=== PATIENT | female | born 1965 | race Caucasian/White ===

== ENCOUNTER 2016-06-02 13:11 | Inpatient (IN) | payer MEDICARE, MEDICAID ==
[~2016-06-02] VITALS: Ht 167.6 cm; Wt 63.1 kg
[~2016-06-02 13:11] MED LIST: BENZ1TAB10 PO; DIVA500T35 PO; PALI234D IM; PANT40TA25 PO; RALT400T PO; RISP3 PO
[2016-06-02] MEDS ORDERED: HALOPERIDOL 5 MG TABLET PO PRN (13:15)
[2016-06-02] MEDS ORDERED: INFLUENZA VIRUS VACCINE QVS 2016-17 (3YR+)/PF 60 MCG/0.5 ML SYRINGE IM ONE (14:15)
[2016-06-02] MEDS ORDERED: PNEUMOCOCCAL VACCINE POLYVALENT 0.5 ML VIAL [PPSV23] IM ONE (14:15)
[2016-06-02 16:05] VITALS: BP 106/60
[2016-06-02] MEDS: RisperiDONE 3 MG TABLET PO SCH (16:40)
[2016-06-02] MEDS: BENZTROPINE MESYLATE 1 MG TABLET PO SCH (16:40)
[2016-06-02] MEDS: DIVALPROEX SODIUM 500 MG DR TABLET PO SCH (16:41)
[2016-06-02] MEDS ORDERED: RisperiDONE 3 MG TABLET PO SCH (17:00)
[2016-06-02] MEDS ORDERED: BENZTROPINE MESYLATE 1 MG TABLET PO SCH (17:00)
[2016-06-02] MEDS ORDERED: DIVALPROEX SODIUM 500 MG DR TABLET PO SCH (17:00)
[2016-06-03] MEDS: RisperiDONE 3 MG TABLET PO SCH ×2 (08:57→16:32)
[2016-06-03] MEDS: DIVALPROEX SODIUM 500 MG DR TABLET PO SCH ×2 (08:57→16:32)
[2016-06-03] MEDS: BENZTROPINE MESYLATE 1 MG TABLET PO SCH ×2 (08:57→16:32)
[2016-06-03 16:08] VITALS: BP 109/70
[2016-06-03] MEDS: RALTEGRAVIR 400 MG TABLET PO SCH (16:32)
[2016-06-04 08:04] VITALS: BP 101/60
[2016-06-04] MEDS: RisperiDONE 3 MG TABLET PO SCH ×2 (08:12→16:36)
[2016-06-04] MEDS: DIVALPROEX SODIUM 500 MG DR TABLET PO SCH ×2 (08:12→16:36)
[2016-06-04] MEDS: BENZTROPINE MESYLATE 1 MG TABLET PO SCH ×2 (08:12→16:36)
[2016-06-04] MEDS: RALTEGRAVIR 400 MG TABLET PO SCH ×2 (08:12→16:36)
[2016-06-04 16:00] VITALS: BP 118/68
[2016-06-05] MEDS: RALTEGRAVIR 400 MG TABLET PO SCH ×2 (08:21→16:29)
[2016-06-05] MEDS: RisperiDONE 3 MG TABLET PO SCH ×2 (08:21→16:29)
[2016-06-05] MEDS: BENZTROPINE MESYLATE 1 MG TABLET PO SCH ×2 (08:21→16:29)
[2016-06-05] MEDS: DIVALPROEX SODIUM 500 MG DR TABLET PO SCH ×2 (08:21→16:29)
[2016-06-05 08:31] VITALS: BP 108/67
[2016-06-05 16:04] VITALS: BP 104/61
[2016-06-06 08:14] VITALS: BP 104/61
[2016-06-06] MEDS: BENZTROPINE MESYLATE 1 MG TABLET PO SCH ×2 (08:30→16:35)
[2016-06-06] MEDS: RisperiDONE 3 MG TABLET PO SCH ×2 (08:30→16:35)
[2016-06-06] MEDS: RALTEGRAVIR 400 MG TABLET PO SCH ×2 (08:30→16:36)
[2016-06-06] MEDS: DIVALPROEX SODIUM 500 MG DR TABLET PO SCH ×2 (08:30→16:35)
[2016-06-06 16:03] VITALS: BP 105/60
[2016-06-07 08:23] VITALS: BP 92/49
[2016-06-07] MEDS: RALTEGRAVIR 400 MG TABLET PO SCH ×2 (08:27→16:59)
[2016-06-07] MEDS: BENZTROPINE MESYLATE 1 MG TABLET PO SCH ×2 (08:27→16:59)
[2016-06-07] MEDS: RisperiDONE 3 MG TABLET PO SCH ×2 (08:27→16:59)
[2016-06-07] MEDS: DIVALPROEX SODIUM 500 MG DR TABLET PO SCH ×2 (08:27→16:59)
[2016-06-07 10:45] VITALS: BP 105/75
[2016-06-07 16:07] VITALS: BP 110/62
[2016-06-08 08:01] VITALS: BP 97/52
[2016-06-08] MEDS: RisperiDONE 3 MG TABLET PO SCH ×2 (08:12→16:33)
[2016-06-08] MEDS: BENZTROPINE MESYLATE 1 MG TABLET PO SCH ×2 (08:12→16:33)
[2016-06-08] MEDS: RALTEGRAVIR 400 MG TABLET PO SCH ×2 (08:12→16:33)
[2016-06-08] MEDS: DIVALPROEX SODIUM 500 MG DR TABLET PO SCH ×2 (08:12→16:33)
[2016-06-08 16:09] VITALS: BP 102/60
[2016-06-09 00:08] VITALS: BP 104/68
[2016-06-09 08:11] VITALS: BP 100/58
[2016-06-09] MEDS: BENZTROPINE MESYLATE 1 MG TABLET PO SCH ×2 (08:51→16:45)
[2016-06-09] MEDS: DIVALPROEX SODIUM 500 MG DR TABLET PO SCH ×2 (08:51→16:45)
[2016-06-09] MEDS: RALTEGRAVIR 400 MG TABLET PO SCH ×2 (08:51→16:45)
[2016-06-09] MEDS: RisperiDONE 3 MG TABLET PO SCH ×2 (08:51→16:45)
[2016-06-09 16:07] VITALS: BP 105/61
[2016-06-10 07:13] VITALS: BP 123/53
[2016-06-10 08:08] VITALS: BP 107/56
[2016-06-10] MEDS: BENZTROPINE MESYLATE 1 MG TABLET PO SCH ×2 (08:46→16:46)
[2016-06-10] MEDS: RALTEGRAVIR 400 MG TABLET PO SCH ×2 (08:46→16:46)
[2016-06-10] MEDS: DIVALPROEX SODIUM 500 MG DR TABLET PO SCH ×2 (08:46→16:46)
[2016-06-10] MEDS: RisperiDONE 3 MG TABLET PO SCH ×2 (08:46→16:46)
[2016-06-10 16:24] VITALS: BP 102/62
[2016-06-10] MEDS: ZOLPIDEM TARTRATE 10 MG TABLET PO PRN (22:17)
[2016-06-11 06:57] VITALS: BP 100/60
[2016-06-11] MEDS: BENZTROPINE MESYLATE 1 MG TABLET PO SCH ×2 (08:38→16:47)
[2016-06-11] MEDS: RALTEGRAVIR 400 MG TABLET PO SCH ×2 (08:39→16:46)
[2016-06-11] MEDS: RisperiDONE 3 MG TABLET PO SCH ×2 (08:39→16:46)
[2016-06-11] MEDS: DIVALPROEX SODIUM 500 MG DR TABLET PO SCH ×2 (08:39→16:47)
[2016-06-11 11:48] VITALS: BP 106/60
[2016-06-11 16:09] VITALS: BP 103/62
[2016-06-11] MEDS: LORazepam 2 MG TABLET PO PRN (19:43)
[2016-06-12 06:27] VITALS: BP 95/59
[2016-06-12 08:13] VITALS: BP 100/60
[2016-06-12] MEDS: RALTEGRAVIR 400 MG TABLET PO SCH ×2 (08:46→16:41)
[2016-06-12] MEDS: DIVALPROEX SODIUM 500 MG DR TABLET PO SCH ×2 (08:47→16:41)
[2016-06-12] MEDS: RisperiDONE 3 MG TABLET PO SCH ×2 (08:47→16:41)
[2016-06-12] MEDS: BENZTROPINE MESYLATE 1 MG TABLET PO SCH ×2 (08:47→16:41)
[2016-06-12 16:10] VITALS: BP 131/60
[2016-06-12] MEDS: LORazepam 2 MG TABLET PO PRN (19:07)
[2016-06-13 06:36] VITALS: BP 101/57
[2016-06-13] MEDS: DIVALPROEX SODIUM 500 MG DR TABLET PO SCH ×2 (09:04→16:59)
[2016-06-13] MEDS: RisperiDONE 3 MG TABLET PO SCH ×2 (09:04→16:59)
[2016-06-13] MEDS: RALTEGRAVIR 400 MG TABLET PO SCH ×2 (09:04→16:59)
[2016-06-13] MEDS: BENZTROPINE MESYLATE 1 MG TABLET PO SCH ×2 (09:04→16:59)
[2016-06-13 16:17] VITALS: BP 114/67
[2016-06-13] MEDS: LORazepam 2 MG TABLET PO PRN (20:44)
[2016-06-14 00:39] VITALS: BP_SYST 116
[2016-06-14] MEDS: DIVALPROEX SODIUM 500 MG DR TABLET PO SCH ×2 (09:07→16:41)
[2016-06-14] MEDS: BENZTROPINE MESYLATE 1 MG TABLET PO SCH ×2 (09:07→16:41)
[2016-06-14] MEDS: RALTEGRAVIR 400 MG TABLET PO SCH ×2 (09:07→16:41)
[2016-06-14] MEDS: RisperiDONE 3 MG TABLET PO SCH ×2 (09:07→16:41)
[2016-06-14 16:11] VITALS: BP 104/62
[2016-06-14] MEDS: LORazepam 2 MG TABLET PO PRN (19:44)
[2016-06-15 00:37] VITALS: BP 106/60
[2016-06-15 08:49] VITALS: BP 101/60
[2016-06-15] MEDS: RisperiDONE 3 MG TABLET PO SCH ×2 (08:55→16:35)
[2016-06-15] MEDS: DIVALPROEX SODIUM 500 MG DR TABLET PO SCH ×2 (08:55→16:37)
[2016-06-15] MEDS: RALTEGRAVIR 400 MG TABLET PO SCH ×2 (08:55→16:35)
[2016-06-15] MEDS: BENZTROPINE MESYLATE 1 MG TABLET PO SCH ×2 (08:55→16:35)
[2016-06-15 16:09] VITALS: BP 124/68
[2016-06-16 00:34] VITALS: BP 109/59
[2016-06-16 06:05] VITALS: BP 109/63
[2016-06-16] MEDS: DIVALPROEX SODIUM 500 MG DR TABLET PO SCH ×2 (09:04→16:26)
[2016-06-16] MEDS: RisperiDONE 3 MG TABLET PO SCH ×2 (09:04→16:27)
[2016-06-16] MEDS: RALTEGRAVIR 400 MG TABLET PO SCH ×2 (09:04→16:26)
[2016-06-16] MEDS: BENZTROPINE MESYLATE 1 MG TABLET PO SCH ×2 (09:04→16:27)
[2016-06-16 10:07] VITALS: BP 107/62
[2016-06-16 16:16] VITALS: BP 102/68
[2016-06-16] MEDS: LORazepam 2 MG TABLET PO PRN (19:09)
[2016-06-17] VITALS: BP 128/74
[2016-06-17] MEDS: RisperiDONE 3 MG TABLET PO SCH ×2 (09:02→16:33)
[2016-06-17] MEDS: BENZTROPINE MESYLATE 1 MG TABLET PO SCH ×2 (09:02→16:23)
[2016-06-17] MEDS: DIVALPROEX SODIUM 500 MG DR TABLET PO SCH ×2 (09:03→16:23)
[2016-06-17] MEDS: RALTEGRAVIR 400 MG TABLET PO SCH ×2 (09:03→16:33)
[2016-06-17 16:10] VITALS: BP 101/64
[2016-06-17] MEDS: ZOLPIDEM TARTRATE 10 MG TABLET PO PRN (20:44)
[2016-06-18 00:59] VITALS: BP 104/59
[2016-06-18] MEDS: DIVALPROEX SODIUM 500 MG DR TABLET PO SCH ×2 (08:39→16:39)
[2016-06-18] MEDS: RALTEGRAVIR 400 MG TABLET PO SCH ×2 (08:39→16:39)
[2016-06-18] MEDS: BENZTROPINE MESYLATE 1 MG TABLET PO SCH ×2 (08:39→16:39)
[2016-06-18] MEDS: RisperiDONE 3 MG TABLET PO SCH ×2 (08:39→16:39)
[2016-06-18 16:24] VITALS: BP 109/65
[2016-06-18] MEDS: LORazepam 2 MG TABLET PO PRN (19:59)
[2016-06-19] MEDS: RisperiDONE 3 MG TABLET PO SCH ×2 (08:24→16:44)
[2016-06-19] MEDS: RALTEGRAVIR 400 MG TABLET PO SCH ×2 (08:24→16:44)
[2016-06-19] MEDS: BENZTROPINE MESYLATE 1 MG TABLET PO SCH ×2 (08:25→16:44)
[2016-06-19] MEDS: DIVALPROEX SODIUM 500 MG DR TABLET PO SCH ×2 (08:25→16:44)
[2016-06-19 16:43] VITALS: BP 101/58
[2016-06-19] MEDS: LORazepam 2 MG TABLET PO PRN (19:45)
[2016-06-20 06:30] VITALS: BP 100/58
[2016-06-20 08:21] VITALS: BP 98/54
[2016-06-20] MEDS: RALTEGRAVIR 400 MG TABLET PO SCH ×2 (09:09→16:36)
[2016-06-20] MEDS: BENZTROPINE MESYLATE 1 MG TABLET PO SCH ×2 (09:09→16:36)
[2016-06-20] MEDS: DIVALPROEX SODIUM 500 MG DR TABLET PO SCH ×2 (09:09→16:36)
[2016-06-20] MEDS: RisperiDONE 3 MG TABLET PO SCH ×2 (09:09→16:36)
[2016-06-20 16:14] VITALS: BP 105/62
[2016-06-20] MEDS: LORazepam 2 MG TABLET PO PRN (19:54)
[2016-06-21 00:11] VITALS: BP 112/66
[2016-06-21 08:34] VITALS: BP 99/65
[2016-06-21] MEDS: BENZTROPINE MESYLATE 1 MG TABLET PO SCH ×2 (09:30→16:38)
[2016-06-21] MEDS: RALTEGRAVIR 400 MG TABLET PO SCH ×2 (09:30→16:38)
[2016-06-21] MEDS: DIVALPROEX SODIUM 500 MG DR TABLET PO SCH ×2 (09:30→16:38)
[2016-06-21] MEDS: RisperiDONE 3 MG TABLET PO SCH ×2 (09:30→16:38)
[2016-06-21 16:08] VITALS: BP 104/60
[2016-06-21] MEDS: LORazepam 2 MG TABLET PO PRN (20:10)
[2016-06-22 02:56] VITALS: BP 104/64
[2016-06-22 08:30] VITALS: BP 107/69
[2016-06-22] MEDS: RALTEGRAVIR 400 MG TABLET PO SCH ×2 (08:51→16:33)
[2016-06-22] MEDS: DIVALPROEX SODIUM 500 MG DR TABLET PO SCH ×2 (08:51→16:33)
[2016-06-22] MEDS: BENZTROPINE MESYLATE 1 MG TABLET PO SCH ×2 (08:51→16:33)
[2016-06-22] MEDS: RisperiDONE 3 MG TABLET PO SCH ×2 (08:52→16:33)
[2016-06-22 16:10] VITALS: BP 105/67
[2016-06-22] MEDS: LORazepam 2 MG TABLET PO PRN (20:24)
[2016-06-23 01:51] VITALS: BP 108/74
[2016-06-23 08:13] VITALS: BP 102/60
[2016-06-23] MEDS: RisperiDONE 3 MG TABLET PO SCH ×2 (09:50→16:39)
[2016-06-23] MEDS: RALTEGRAVIR 400 MG TABLET PO SCH ×2 (09:50→16:39)
[2016-06-23] MEDS: DIVALPROEX SODIUM 500 MG DR TABLET PO SCH ×2 (09:50→16:39)
[2016-06-23] MEDS: BENZTROPINE MESYLATE 1 MG TABLET PO SCH ×2 (09:50→16:39)
[2016-06-23 16:15] VITALS: BP 103/61
[2016-06-23] MEDS: LORazepam 2 MG TABLET PO PRN (21:15)
[2016-06-24] MEDS: RisperiDONE 3 MG TABLET PO SCH ×2 (08:59→16:40)
[2016-06-24] MEDS: DIVALPROEX SODIUM 500 MG DR TABLET PO SCH ×2 (08:59→16:40)
[2016-06-24] MEDS: RALTEGRAVIR 400 MG TABLET PO SCH ×2 (08:59→16:40)
[2016-06-24] MEDS: BENZTROPINE MESYLATE 1 MG TABLET PO SCH ×2 (08:59→16:40)
[2016-06-24 09:57] VITALS: BP 101/67
[2016-06-24 16:39] VITALS: BP 101/61
[2016-06-24] MEDS: LORazepam 2 MG TABLET PO PRN (21:51)
[2016-06-25 08:11] VITALS: BP 102/60
[2016-06-25] MEDS: BENZTROPINE MESYLATE 1 MG TABLET PO SCH ×2 (09:06→16:50)
[2016-06-25] MEDS: DIVALPROEX SODIUM 500 MG DR TABLET PO SCH ×2 (09:06→16:50)
[2016-06-25] MEDS: RisperiDONE 3 MG TABLET PO SCH ×2 (09:06→16:50)
[2016-06-25] MEDS: RALTEGRAVIR 400 MG TABLET PO SCH ×2 (09:06→16:50)
[2016-06-25 16:15] VITALS: BP 104/64
[2016-06-25] MEDS: LORazepam 2 MG TABLET PO PRN (19:40)
[2016-06-26 06:41] VITALS: BP 108/62
[2016-06-26 08:30] VITALS: BP 118/64
[2016-06-26] MEDS: BENZTROPINE MESYLATE 1 MG TABLET PO SCH ×2 (09:40→16:27)
[2016-06-26] MEDS: DIVALPROEX SODIUM 500 MG DR TABLET PO SCH ×2 (09:41→16:27)
[2016-06-26] MEDS: RALTEGRAVIR 400 MG TABLET PO SCH ×2 (09:41→16:27)
[2016-06-26] MEDS: RisperiDONE 3 MG TABLET PO SCH ×2 (09:41→16:27)
[2016-06-26 16:16] VITALS: BP 102/68
[2016-06-26] MEDS: LORazepam 2 MG TABLET PO PRN (20:49)
[2016-06-27 06:39] VITALS: BP 100/60
[2016-06-27] MEDS: BENZTROPINE MESYLATE 1 MG TABLET PO SCH ×2 (09:05→16:40)
[2016-06-27] MEDS: DIVALPROEX SODIUM 500 MG DR TABLET PO SCH ×2 (09:05→16:40)
[2016-06-27] MEDS: RisperiDONE 3 MG TABLET PO SCH ×2 (09:05→16:40)
[2016-06-27] MEDS: RALTEGRAVIR 400 MG TABLET PO SCH ×2 (09:05→16:40)
[2016-06-27 13:45] VITALS: BP 104/62
[2016-06-27 16:37] VITALS: BP 104/65
[2016-06-28 01:26] VITALS: BP 112/67
[2016-06-28] MEDS: RALTEGRAVIR 400 MG TABLET PO SCH ×2 (09:10→16:40)
[2016-06-28] MEDS: RisperiDONE 3 MG TABLET PO SCH ×2 (09:10→16:40)
[2016-06-28] MEDS: BENZTROPINE MESYLATE 1 MG TABLET PO SCH ×2 (09:10→16:40)
[2016-06-28] MEDS: DIVALPROEX SODIUM 500 MG DR TABLET PO SCH ×2 (09:10→16:40)
[2016-06-28 10:00] VITALS: BP 101/60
[2016-06-28 16:09] VITALS: BP 107/67
[2016-06-28] MEDS: LORazepam 2 MG TABLET PO PRN (21:08)
[2016-06-29 00:43] VITALS: BP 108/60
[2016-06-29 08:45] VITALS: BP 105/60
[2016-06-29] MEDS: RALTEGRAVIR 400 MG TABLET PO SCH ×2 (09:07→16:20)
[2016-06-29] MEDS: RisperiDONE 3 MG TABLET PO SCH ×2 (09:07→16:20)
[2016-06-29] MEDS: DIVALPROEX SODIUM 500 MG DR TABLET PO SCH ×2 (09:07→16:20)
[2016-06-29] MEDS: BENZTROPINE MESYLATE 1 MG TABLET PO SCH ×2 (09:07→16:20)
[2016-06-29 16:11] VITALS: BP 108/64
[2016-06-29] MEDS: LORazepam 2 MG TABLET PO PRN (20:27)
[2016-06-30 00:11] VITALS: BP 108/67
[2016-06-30] MEDS: RALTEGRAVIR 400 MG TABLET PO SCH ×2 (09:07→16:43)
[2016-06-30] MEDS: RisperiDONE 3 MG TABLET PO SCH ×2 (09:07→16:43)
[2016-06-30] MEDS: BENZTROPINE MESYLATE 1 MG TABLET PO SCH ×2 (09:07→16:43)
[2016-06-30] MEDS: DIVALPROEX SODIUM 500 MG DR TABLET PO SCH ×2 (09:08→16:43)
[2016-06-30 09:50] LABS: BASOPHILS % (AUTO) 0.2 % (0.0-2.0); HEMATOCRIT 32.6 % (36-46); HEMOGLOBIN 10.7 g/dL (12.0-16.0); LYMPHOCYTES # (AUTO) 0.8 K/uL (1.0-4.8); LYMPHOCYTES % (AUTO) 19.1 % (22.0-44.0); MEAN CORPUSCULAR HEMOGLOBIN 29.4 pg (26.0-34.0); MEAN CORPUSCULAR HGB CONC 32.8 G/dL (31.0-37.0); MEAN CORPUSCULAR VOLUME 90 fL (80-100); MONOCYTES # (AUTO) 0.4 K/uL (0.1-1.0); MONOCYTES % (AUTO) 9.8 % (2.0-9.0); NEUTROPHILS # (AUTO) 2.8 K/uL (1.8-7.7); NEUTROPHILS % (AUTO) 66.9 % (40.0-70.0); PLATELET COUNT (AUTO) 115 K/uL (150-450); RED BLOOD CELL COUNT(AUTO) 3.63 MIL/uL (4.00-5.20); RED CELL DISTRIBUTION WIDTH 14.8 % (11.5-14.5); WHITE BLOOD COUNT (AUTO) 4.2 K/uL (4.5-11.0)
[2016-06-30 10:00] LABS: ALBUMIN 2.9 g/dL (3.4-5.0); BILIRUBIN,TOTAL 0.2 mg/dL (0.1-1.0); CALCIUM, TOTAL 9.3 mg/dL (8.8-10.5); CREATININE 1.87 mg/dL (0.60-1.30); POTASSIUM 4.3 mmol/L (3.5-5.1); TOTAL PROTEIN, SERUM 7.2 g/dL (6.4-8.2)
[2016-06-30 16:10] VITALS: BP 101/60
[2016-07-01 00:11] VITALS: BP 108/69
[2016-07-01 08:05] VITALS: BP 112/61
[2016-07-01] MEDS: RALTEGRAVIR 400 MG TABLET PO SCH (08:35)
[2016-07-01] MEDS: DIVALPROEX SODIUM 500 MG DR TABLET PO SCH (08:35)
[2016-07-01] MEDS: BENZTROPINE MESYLATE 1 MG TABLET PO SCH (08:35)
[2016-07-01] MEDS: RisperiDONE 3 MG TABLET PO SCH (08:35)
[2016-07-02] MEDS: DIVALPROEX SODIUM 500 MG DR TABLET PO SCH ×2 (09:00→17:00)
[2016-07-02] MEDS: RALTEGRAVIR 400 MG TABLET PO SCH ×2 (09:00→17:00)
[2016-07-02] MEDS: BENZTROPINE MESYLATE 1 MG TABLET PO SCH ×2 (09:00→17:00)
[2016-07-02] MEDS: RisperiDONE 3 MG TABLET PO SCH ×2 (09:00→17:00)
[2016-07-03 06:41] VITALS: BP 102/65
[2016-07-03] MEDS: RALTEGRAVIR 400 MG TABLET PO SCH ×2 (09:16→17:24)
[2016-07-03] MEDS: BENZTROPINE MESYLATE 1 MG TABLET PO SCH ×2 (09:16→17:24)
[2016-07-03] MEDS: DIVALPROEX SODIUM 500 MG DR TABLET PO SCH ×2 (09:17→17:24)
[2016-07-03] MEDS: RisperiDONE 3 MG TABLET PO SCH ×2 (09:17→17:24)
[2016-07-03 09:42] VITALS: BP 101/68
[2016-07-03] MEDS: LORazepam 2 MG TABLET PO PRN ×2 (11:59→21:23)
[2016-07-03 16:00] VITALS: BP 101/63
[2016-07-04 08:24] VITALS: BP 100/59
[2016-07-04] MEDS: DIVALPROEX SODIUM 500 MG DR TABLET PO SCH ×2 (09:04→16:35)
[2016-07-04] MEDS: BENZTROPINE MESYLATE 1 MG TABLET PO SCH ×2 (09:04→16:35)
[2016-07-04] MEDS: RALTEGRAVIR 400 MG TABLET PO SCH ×2 (09:04→16:35)
[2016-07-04] MEDS: RisperiDONE 3 MG TABLET PO SCH ×2 (09:04→16:35)
[2016-07-04 16:11] VITALS: BP 106/61
[2016-07-04] MEDS: LORazepam 2 MG TABLET PO PRN (20:23)
[2016-07-05 06:02] VITALS: BP 105/60
[2016-07-05 08:22] VITALS: BP 108/73
[2016-07-05] MEDS: DIVALPROEX SODIUM 500 MG DR TABLET PO SCH ×2 (09:05→16:46)
[2016-07-05] MEDS: RALTEGRAVIR 400 MG TABLET PO SCH ×2 (09:05→16:46)
[2016-07-05] MEDS: BENZTROPINE MESYLATE 1 MG TABLET PO SCH ×2 (09:05→16:46)
[2016-07-05] MEDS: RisperiDONE 3 MG TABLET PO SCH ×2 (09:05→16:46)
[2016-07-05 18:41] VITALS: BP 101/66
[2016-07-05] MEDS: LORazepam 2 MG TABLET PO PRN (19:16)
[2016-07-06 00:44] VITALS: BP 112/74
[2016-07-06] MEDS: RisperiDONE 3 MG TABLET PO SCH ×2 (09:10→16:56)
[2016-07-06] MEDS: BENZTROPINE MESYLATE 1 MG TABLET PO SCH ×2 (09:10→16:56)
[2016-07-06] MEDS: DIVALPROEX SODIUM 500 MG DR TABLET PO SCH ×2 (09:10→16:56)
[2016-07-06] MEDS: RALTEGRAVIR 400 MG TABLET PO SCH ×2 (09:10→16:56)
[2016-07-06 09:14] VITALS: BP 105/67
[2016-07-06 16:40] VITALS: BP 110/69
[2016-07-06] MEDS: LORazepam 2 MG TABLET PO PRN (21:14)
[2016-07-07 06:33] VITALS: BP 117/69
[2016-07-07 08:42] VITALS: BP 100/75
[2016-07-07] MEDS: DIVALPROEX SODIUM 500 MG DR TABLET PO SCH ×2 (08:45→16:08)
[2016-07-07] MEDS: BENZTROPINE MESYLATE 1 MG TABLET PO SCH ×2 (08:46→16:08)
[2016-07-07] MEDS: RALTEGRAVIR 400 MG TABLET PO SCH ×2 (08:46→16:08)
[2016-07-07] MEDS: RisperiDONE 3 MG TABLET PO SCH ×2 (08:46→16:08)
[2016-07-07 16:08] VITALS: BP 102/65
[2016-07-07] MEDS: LORazepam 2 MG TABLET PO PRN (21:11)
[2016-07-08 06:47] VITALS: BP 101/65
[2016-07-08] MEDS: DIVALPROEX SODIUM 500 MG DR TABLET PO SCH ×2 (08:53→16:25)
[2016-07-08] MEDS: RALTEGRAVIR 400 MG TABLET PO SCH ×2 (08:53→16:25)
[2016-07-08] MEDS: BENZTROPINE MESYLATE 1 MG TABLET PO SCH ×2 (08:53→16:25)
[2016-07-08] MEDS: RisperiDONE 3 MG TABLET PO SCH ×2 (08:53→16:25)
[2016-07-08 09:09] VITALS: BP 106/61
[2016-07-08 17:24] VITALS: BP 100/61
[2016-07-08] MEDS: LORazepam 2 MG TABLET PO PRN (21:35)
[2016-07-09 06:23] VITALS: BP 102/65
[2016-07-09 08:09] VITALS: BP 107/74
[2016-07-09] MEDS: BENZTROPINE MESYLATE 1 MG TABLET PO SCH ×2 (09:44→16:15)
[2016-07-09] MEDS: RisperiDONE 3 MG TABLET PO SCH ×2 (09:45→16:15)
[2016-07-09] MEDS: DIVALPROEX SODIUM 500 MG DR TABLET PO SCH ×2 (09:45→16:15)
[2016-07-09] MEDS: RALTEGRAVIR 400 MG TABLET PO SCH ×2 (09:45→16:15)
[2016-07-09 16:14] VITALS: BP 106/66
[2016-07-09] MEDS: LORazepam 2 MG TABLET PO PRN (20:03)
[2016-07-10 05:10] VITALS: BP 138/70
[2016-07-10 06:34] VITALS: BP 141/70
[2016-07-10 09:24] VITALS: BP 106/61
[2016-07-10] MEDS: DIVALPROEX SODIUM 500 MG DR TABLET PO SCH ×2 (09:43→16:19)
[2016-07-10] MEDS: RisperiDONE 3 MG TABLET PO SCH ×2 (09:43→16:19)
[2016-07-10] MEDS: RALTEGRAVIR 400 MG TABLET PO SCH ×2 (09:43→16:19)
[2016-07-10] MEDS: BENZTROPINE MESYLATE 1 MG TABLET PO SCH ×2 (09:43→16:19)
[2016-07-10 16:20] VITALS: BP 105/63
[2016-07-11 00:01] VITALS: BP 112/78
[2016-07-11] MEDS: LORazepam 2 MG TABLET PO PRN ×2 (00:02→20:43)
[2016-07-11 09:18] VITALS: BP 100/59
[2016-07-11] MEDS: RisperiDONE 3 MG TABLET PO SCH ×2 (09:41→17:32)
[2016-07-11] MEDS: DIVALPROEX SODIUM 500 MG DR TABLET PO SCH ×2 (09:41→17:32)
[2016-07-11] MEDS: BENZTROPINE MESYLATE 1 MG TABLET PO SCH ×2 (09:41→17:32)
[2016-07-11] MEDS: RALTEGRAVIR 400 MG TABLET PO SCH ×2 (09:41→17:33)
[2016-07-11 16:44] VITALS: BP 105/67
[2016-07-11] MEDS: ZOLPIDEM TARTRATE 10 MG TABLET PO PRN (20:43)
[2016-07-12 00:01] VITALS: BP 108/68
[2016-07-12 08:26] VITALS: BP 100/61
[2016-07-12] MEDS: BENZTROPINE MESYLATE 1 MG TABLET PO SCH ×2 (09:22→16:39)
[2016-07-12] MEDS: RisperiDONE 3 MG TABLET PO SCH ×2 (09:22→16:39)
[2016-07-12] MEDS: DIVALPROEX SODIUM 500 MG DR TABLET PO SCH ×2 (09:22→16:39)
[2016-07-12] MEDS: RALTEGRAVIR 400 MG TABLET PO SCH ×2 (09:22→16:38)
[2016-07-12 16:08] VITALS: BP 128/74
[2016-07-12] MEDS: LORazepam 2 MG TABLET PO PRN (19:30)
[2016-07-13 04:08] VITALS: BP 103/63
[2016-07-13 08:58] VITALS: BP 106/60
[2016-07-13] MEDS: RisperiDONE 3 MG TABLET PO SCH ×2 (09:16→16:35)
[2016-07-13] MEDS: DIVALPROEX SODIUM 500 MG DR TABLET PO SCH ×2 (09:16→16:35)
[2016-07-13] MEDS: BENZTROPINE MESYLATE 1 MG TABLET PO SCH ×2 (09:16→16:35)
[2016-07-13] MEDS: RALTEGRAVIR 400 MG TABLET PO SCH ×2 (09:16→16:35)
[2016-07-13 16:12] VITALS: BP 107/69
[2016-07-13] MEDS: LORazepam 2 MG TABLET PO PRN (20:45)
[2016-07-14 05:13] VITALS: BP 110/64
[2016-07-14] MEDS: DIVALPROEX SODIUM 500 MG DR TABLET PO SCH ×2 (10:00→16:49)
[2016-07-14] MEDS: BENZTROPINE MESYLATE 1 MG TABLET PO SCH ×2 (10:00→16:49)
[2016-07-14] MEDS: RisperiDONE 3 MG TABLET PO SCH ×2 (10:00→16:49)
[2016-07-14] MEDS: RALTEGRAVIR 400 MG TABLET PO SCH ×2 (10:00→16:49)
[2016-07-14 11:51] VITALS: BP 105/71
[2016-07-14 16:20] VITALS: BP 102/62
[2016-07-14] MEDS: LORazepam 2 MG TABLET PO PRN (21:14)
[2016-07-15 04:00] VITALS: BP 103/62
[2016-07-15] MEDS: BENZTROPINE MESYLATE 1 MG TABLET PO SCH ×2 (08:44→16:20)
[2016-07-15] MEDS: RisperiDONE 3 MG TABLET PO SCH ×2 (08:44→16:20)
[2016-07-15] MEDS: DIVALPROEX SODIUM 500 MG DR TABLET PO SCH ×2 (08:44→16:20)
[2016-07-15] MEDS: RALTEGRAVIR 400 MG TABLET PO SCH ×2 (08:44→16:20)
[2016-07-15 09:21] VITALS: BP 107/63
[2016-07-15 16:07] VITALS: BP 103/60
[2016-07-15] MEDS: LORazepam 2 MG TABLET PO PRN (19:38)
[2016-07-16] MEDS: RisperiDONE 3 MG TABLET PO SCH ×2 (08:44→16:16)
[2016-07-16] MEDS: BENZTROPINE MESYLATE 1 MG TABLET PO SCH ×2 (08:44→16:16)
[2016-07-16] MEDS: DIVALPROEX SODIUM 500 MG DR TABLET PO SCH ×2 (08:44→16:16)
[2016-07-16] MEDS: RALTEGRAVIR 400 MG TABLET PO SCH ×2 (08:44→16:17)
[2016-07-16 09:26] VITALS: BP 101/60
[2016-07-16 16:17] VITALS: BP 114/68
[2016-07-17 01:10] VITALS: BP 115/74
[2016-07-17 08:56] VITALS: BP 101/64
[2016-07-17] MEDS: RALTEGRAVIR 400 MG TABLET PO SCH ×2 (09:13→16:16)
[2016-07-17] MEDS: BENZTROPINE MESYLATE 1 MG TABLET PO SCH ×2 (09:13→16:16)
[2016-07-17] MEDS: DIVALPROEX SODIUM 500 MG DR TABLET PO SCH ×2 (09:13→16:16)
[2016-07-17] MEDS: RisperiDONE 3 MG TABLET PO SCH ×2 (09:13→16:16)
[2016-07-17 16:00] VITALS: BP 104/62
[2016-07-18 00:39] VITALS: BP 104/65
[2016-07-18] MEDS: DIVALPROEX SODIUM 500 MG DR TABLET PO SCH ×2 (08:51→16:36)
[2016-07-18] MEDS: BENZTROPINE MESYLATE 1 MG TABLET PO SCH ×2 (08:51→16:35)
[2016-07-18] MEDS: RisperiDONE 3 MG TABLET PO SCH ×2 (08:51→16:36)
[2016-07-18] MEDS: RALTEGRAVIR 400 MG TABLET PO SCH ×2 (08:51→16:35)
[2016-07-18 09:05] VITALS: BP 100/60
[2016-07-18 16:00] VITALS: BP 102/63
[2016-07-18] MEDS: LORazepam 2 MG TABLET PO PRN (19:28)
[2016-07-19 00:38] VITALS: BP 110/62
[2016-07-19 08:17] VITALS: BP 111/60
[2016-07-19] MEDS: RisperiDONE 3 MG TABLET PO SCH ×2 (11:08→16:45)
[2016-07-19] MEDS: RALTEGRAVIR 400 MG TABLET PO SCH ×2 (11:09→16:45)
[2016-07-19] MEDS: DIVALPROEX SODIUM 500 MG DR TABLET PO SCH ×2 (11:09→16:45)
[2016-07-19] MEDS: BENZTROPINE MESYLATE 1 MG TABLET PO SCH ×2 (11:09→16:45)
[2016-07-19 16:04] VITALS: BP 103/61
[2016-07-20 00:01] VITALS: BP 110/65
[2016-07-20] MEDS: LORazepam 2 MG TABLET PO PRN ×2 (00:02→22:13)
[2016-07-20 09:01] VITALS: BP 84/48
[2016-07-20 09:10] VITALS: BP 98/65
[2016-07-20] MEDS: RisperiDONE 3 MG TABLET PO SCH ×2 (09:18→16:23)
[2016-07-20] MEDS: RALTEGRAVIR 400 MG TABLET PO SCH ×2 (09:18→16:23)
[2016-07-20] MEDS: BENZTROPINE MESYLATE 1 MG TABLET PO SCH ×2 (09:18→16:23)
[2016-07-20] MEDS: DIVALPROEX SODIUM 500 MG DR TABLET PO SCH ×2 (09:18→16:23)
[2016-07-20 16:12] VITALS: BP 104/65
[2016-07-21 04:37] VITALS: BP 114/65
[2016-07-21 08:11] VITALS: BP 80/45
[2016-07-21] MEDS: DIVALPROEX SODIUM 500 MG DR TABLET PO SCH ×2 (09:42→16:34)
[2016-07-21] MEDS: BENZTROPINE MESYLATE 1 MG TABLET PO SCH ×2 (09:42→16:34)
[2016-07-21] MEDS: RisperiDONE 3 MG TABLET PO SCH ×2 (09:42→16:34)
[2016-07-21] MEDS: RALTEGRAVIR 400 MG TABLET PO SCH ×2 (09:42→16:34)
[2016-07-21 11:02] VITALS: BP 92/57
[2016-07-21 16:43] VITALS: BP 105/73
[2016-07-21] MEDS: LORazepam 2 MG TABLET PO PRN (21:30)
[2016-07-22 00:51] VITALS: BP 104/70
[2016-07-22] MEDS: RisperiDONE 3 MG TABLET PO SCH ×2 (09:23→16:59)
[2016-07-22] MEDS: DIVALPROEX SODIUM 500 MG DR TABLET PO SCH ×2 (09:23→16:59)
[2016-07-22] MEDS: BENZTROPINE MESYLATE 1 MG TABLET PO SCH ×2 (09:23→16:59)
[2016-07-22] MEDS: RALTEGRAVIR 400 MG TABLET PO SCH ×2 (09:24→16:59)
[2016-07-22 09:32] VITALS: BP 106/62
[2016-07-22 16:14] VITALS: BP 98/61
[2016-07-23 00:10] VITALS: BP 105/78
[2016-07-23] MEDS: LORazepam 2 MG TABLET PO PRN ×2 (00:18→20:15)
[2016-07-23 09:00] VITALS: BP 101/62
[2016-07-23] MEDS: RALTEGRAVIR 400 MG TABLET PO SCH ×2 (09:09→16:11)
[2016-07-23] MEDS: BENZTROPINE MESYLATE 1 MG TABLET PO SCH ×2 (09:09→16:11)
[2016-07-23] MEDS: DIVALPROEX SODIUM 500 MG DR TABLET PO SCH ×2 (09:09→16:11)
[2016-07-23] MEDS: RisperiDONE 3 MG TABLET PO SCH ×2 (09:09→16:11)
[2016-07-23 16:37] VITALS: BP 100/62
[2016-07-24 07:09] VITALS: BP 103/71
[2016-07-24 09:04] VITALS: BP_SYST 10; BP_SYST 100; BP_DIAS 62
[2016-07-24] MEDS: RisperiDONE 3 MG TABLET PO SCH ×2 (09:33→16:37)
[2016-07-24] MEDS: DIVALPROEX SODIUM 500 MG DR TABLET PO SCH ×2 (09:33→16:37)
[2016-07-24] MEDS: BENZTROPINE MESYLATE 1 MG TABLET PO SCH ×2 (09:33→16:37)
[2016-07-24] MEDS: RALTEGRAVIR 400 MG TABLET PO SCH ×2 (09:33→16:37)
[2016-07-24 16:13] VITALS: BP 101/63
[2016-07-24] MEDS: LORazepam 2 MG TABLET PO PRN (20:14)
[2016-07-25] MEDS: RALTEGRAVIR 400 MG TABLET PO SCH ×2 (08:42→17:10)
[2016-07-25] MEDS: DIVALPROEX SODIUM 500 MG DR TABLET PO SCH ×2 (08:42→17:10)
[2016-07-25] MEDS: RisperiDONE 3 MG TABLET PO SCH ×2 (08:42→17:10)
[2016-07-25] MEDS: BENZTROPINE MESYLATE 1 MG TABLET PO SCH ×2 (08:43→17:10)
[2016-07-25 09:35] VITALS: BP 97/64
[2016-07-25 16:24] VITALS: BP 95/65
[2016-07-25 17:10] VITALS: BP 102/66
[2016-07-26 00:45] VITALS: BP 104/69
[2016-07-26 08:10] VITALS: BP 112/71
[2016-07-26] MEDS: BENZTROPINE MESYLATE 1 MG TABLET PO SCH ×2 (09:09→16:28)
[2016-07-26] MEDS: RisperiDONE 3 MG TABLET PO SCH ×2 (09:09→16:28)
[2016-07-26] MEDS: DIVALPROEX SODIUM 500 MG DR TABLET PO SCH ×2 (09:09→16:28)
[2016-07-26] MEDS: RALTEGRAVIR 400 MG TABLET PO SCH ×2 (09:09→16:28)
[2016-07-26 16:09] VITALS: BP 105/67
[2016-07-26] MEDS: LORazepam 2 MG TABLET PO PRN (20:29)
[2016-07-27 07:09] VITALS: BP 110/61
[2016-07-27 08:32] VITALS: BP 109/64
[2016-07-27] MEDS: RisperiDONE 3 MG TABLET PO SCH ×2 (08:53→16:34)
[2016-07-27] MEDS: DIVALPROEX SODIUM 500 MG DR TABLET PO SCH ×2 (08:53→16:33)
[2016-07-27] MEDS: RALTEGRAVIR 400 MG TABLET PO SCH ×2 (08:53→16:34)
[2016-07-27] MEDS: BENZTROPINE MESYLATE 1 MG TABLET PO SCH ×2 (08:53→16:34)
[2016-07-27 16:11] VITALS: BP 100/70
[2016-07-27] MEDS: LORazepam 2 MG TABLET PO PRN (20:42)
[2016-07-28 06:36] VITALS: BP 100/52
[2016-07-28 08:11] VITALS: BP 90/60
[2016-07-28] MEDS: RisperiDONE 3 MG TABLET PO SCH ×2 (09:27→16:54)
[2016-07-28] MEDS: RALTEGRAVIR 400 MG TABLET PO SCH ×2 (09:27→16:54)
[2016-07-28] MEDS: BENZTROPINE MESYLATE 1 MG TABLET PO SCH ×2 (09:27→16:54)
[2016-07-28] MEDS: DIVALPROEX SODIUM 500 MG DR TABLET PO SCH ×2 (09:27→16:55)
[2016-07-28 11:27] VITALS: BP 92/62
[2016-07-28 16:35] VITALS: BP 105/77
[2016-07-28] MEDS: LORazepam 2 MG TABLET PO PRN (22:53)
[2016-07-29 03:37] VITALS: BP 122/65
[2016-07-29 08:14] VITALS: BP 95/63
[2016-07-29] MEDS: RALTEGRAVIR 400 MG TABLET PO SCH ×2 (08:19→16:33)
[2016-07-29] MEDS: DIVALPROEX SODIUM 500 MG DR TABLET PO SCH ×2 (08:19→16:33)
[2016-07-29] MEDS: RisperiDONE 3 MG TABLET PO SCH ×2 (08:19→16:33)
[2016-07-29] MEDS: BENZTROPINE MESYLATE 1 MG TABLET PO SCH ×2 (08:19→16:33)
[2016-07-29 16:10] VITALS: BP 103/69
[2016-07-29] MEDS: LORazepam 2 MG TABLET PO PRN (19:40)
[2016-07-30 06:16] VITALS: BP 106/63
[2016-07-30 08:41] VITALS: BP 102/61
[2016-07-30] MEDS: RALTEGRAVIR 400 MG TABLET PO SCH ×2 (09:22→16:37)
[2016-07-30] MEDS: BENZTROPINE MESYLATE 1 MG TABLET PO SCH ×2 (09:22→16:36)
[2016-07-30] MEDS: DIVALPROEX SODIUM 500 MG DR TABLET PO SCH ×2 (09:22→16:37)
[2016-07-30] MEDS: RisperiDONE 3 MG TABLET PO SCH ×2 (09:22→16:37)
[2016-07-30 16:19] VITALS: BP 95/71
[2016-07-30] MEDS: LORazepam 2 MG TABLET PO PRN (19:39)
[2016-07-31 03:44] VITALS: BP 105/60
[2016-07-31] MEDS: BENZTROPINE MESYLATE 1 MG TABLET PO SCH ×2 (08:50→16:15)
[2016-07-31] MEDS: RALTEGRAVIR 400 MG TABLET PO SCH ×2 (08:50→16:15)
[2016-07-31] MEDS: DIVALPROEX SODIUM 500 MG DR TABLET PO SCH ×2 (08:50→16:15)
[2016-07-31] MEDS: RisperiDONE 3 MG TABLET PO SCH ×2 (08:50→16:15)
[2016-07-31 08:53] VITALS: BP 102/61
[2016-07-31 16:17] VITALS: BP 100/63
[2016-07-31 20:30] VITALS: BP 104/68
[2016-07-31] MEDS: LORazepam 2 MG TABLET PO PRN (20:32)
[2016-08-01 05:55] VITALS: BP 95/63
[2016-08-01 08:13] VITALS: BP 98/58
[2016-08-01] MEDS: DIVALPROEX SODIUM 500 MG DR TABLET PO SCH ×2 (08:58→17:04)
[2016-08-01] MEDS: RALTEGRAVIR 400 MG TABLET PO SCH ×2 (08:58→17:04)
[2016-08-01] MEDS: RisperiDONE 3 MG TABLET PO SCH ×2 (08:58→17:03)
[2016-08-01] MEDS: BENZTROPINE MESYLATE 1 MG TABLET PO SCH ×2 (08:58→17:03)
[2016-08-01 12:22] VITALS: BP 105/70
[2016-08-01 16:09] VITALS: BP 120/81
[2016-08-01] MEDS: LORazepam 2 MG TABLET PO PRN (20:52)
[2016-08-02 06:47] VITALS: BP 101/61
[2016-08-02 08:19] VITALS: BP 96/69
[2016-08-02] MEDS: BENZTROPINE MESYLATE 1 MG TABLET PO SCH ×2 (09:28→16:39)
[2016-08-02] MEDS: DIVALPROEX SODIUM 500 MG DR TABLET PO SCH ×2 (09:28→16:39)
[2016-08-02] MEDS: RisperiDONE 3 MG TABLET PO SCH ×2 (09:28→16:39)
[2016-08-02] MEDS: RALTEGRAVIR 400 MG TABLET PO SCH ×2 (09:28→16:39)
[2016-08-02 16:12] VITALS: BP 108/69
[2016-08-02] MEDS: LORazepam 2 MG TABLET PO PRN (20:23)
[2016-08-03 06:39] VITALS: BP 105/68
[2016-08-03 08:25] VITALS: BP 102/60
[2016-08-03] MEDS: DIVALPROEX SODIUM 500 MG DR TABLET PO SCH ×2 (09:10→16:36)
[2016-08-03] MEDS: RisperiDONE 3 MG TABLET PO SCH ×2 (09:10→16:36)
[2016-08-03] MEDS: RALTEGRAVIR 400 MG TABLET PO SCH ×2 (09:10→16:36)
[2016-08-03] MEDS: BENZTROPINE MESYLATE 1 MG TABLET PO SCH ×2 (09:10→16:36)
[2016-08-03 16:08] VITALS: BP 106/67
[2016-08-04 07:16] VITALS: BP 115/78
[2016-08-04 08:51] VITALS: BP 99/55
[2016-08-04] MEDS: DIVALPROEX SODIUM 500 MG DR TABLET PO SCH ×2 (10:06→17:00)
[2016-08-04] MEDS: RALTEGRAVIR 400 MG TABLET PO SCH ×2 (10:06→17:37)
[2016-08-04] MEDS: RisperiDONE 3 MG TABLET PO SCH ×2 (10:06→17:00)
[2016-08-04] MEDS: BENZTROPINE MESYLATE 1 MG TABLET PO SCH ×2 (10:06→17:00)
[2016-08-04 10:58] VITALS: BP 111/65
[2016-08-04 16:14] VITALS: BP 105/72
[2016-08-05 06:16] VITALS: BP 106/67
[2016-08-05 08:38] VITALS: BP 101/62
[2016-08-05] MEDS: RALTEGRAVIR 400 MG TABLET PO SCH ×2 (09:18→16:46)
[2016-08-05] MEDS: BENZTROPINE MESYLATE 1 MG TABLET PO SCH ×2 (09:18→16:46)
[2016-08-05] MEDS: RisperiDONE 3 MG TABLET PO SCH ×2 (09:18→16:46)
[2016-08-05] MEDS: DIVALPROEX SODIUM 500 MG DR TABLET PO SCH ×2 (09:18→16:46)
[2016-08-05 16:00] VITALS: BP 103/70
[2016-08-05] MEDS: LORazepam 2 MG TABLET PO PRN (21:20)
[2016-08-06 06:14] VITALS: BP 103/72
[2016-08-06 08:25] VITALS: BP 100/57
[2016-08-06 09:37] LABS: BASOPHILS % (AUTO) 0.5 % (0.0-2.0); EOSINOPHILS % (AUTO) 3.6 % (1.0-6.0); HEMOGLOBIN 11.3 g/dL (12.0-16.0); LYMPHOCYTES # (AUTO) 1.1 K/uL (1.0-4.8); LYMPHOCYTES % (AUTO) 24.3 % (22.0-44.0); MEAN CORPUSCULAR HEMOGLOBIN 30.9 pg (26.0-34.0); MEAN CORPUSCULAR HGB CONC 33.2 G/dL (31.0-37.0); MEAN CORPUSCULAR VOLUME 93 fL (80-100); MONOCYTES # (AUTO) 0.6 K/uL (0.1-1.0); MONOCYTES % (AUTO) 13.6 % (2.0-9.0); NEUTROPHILS # (AUTO) 2.6 K/uL (1.8-7.7); PLATELET COUNT (AUTO) 115 K/uL (150-450); RED BLOOD CELL COUNT(AUTO) 3.65 MIL/uL (4.00-5.20); RED CELL DISTRIBUTION WIDTH 15.1 % (11.5-14.5); WHITE BLOOD COUNT (AUTO) 4.5 K/uL (4.5-11.0)
[2016-08-06 09:50] LABS: ALBUMIN 2.8 g/dL (3.4-5.0); BILIRUBIN,TOTAL 0.3 mg/dL (0.1-1.0); CALCIUM, TOTAL 8.9 mg/dL (8.8-10.5); CREATININE 2.12 mg/dL (0.60-1.30); POTASSIUM 4.1 mmol/L (3.5-5.1)
[2016-08-06] MEDS: DIVALPROEX SODIUM 500 MG DR TABLET PO SCH ×2 (10:43→16:18)
[2016-08-06] MEDS: RisperiDONE 3 MG TABLET PO SCH ×2 (10:43→16:18)
[2016-08-06] MEDS: BENZTROPINE MESYLATE 1 MG TABLET PO SCH ×2 (10:44→16:18)
[2016-08-06] MEDS: RALTEGRAVIR 400 MG TABLET PO SCH ×2 (10:44→16:18)
[2016-08-06 16:13] VITALS: BP 120/71
[2016-08-07 06:45] VITALS: BP 102/72
[2016-08-07 08:31] VITALS: BP 88/51
[2016-08-07] MEDS: DIVALPROEX SODIUM 500 MG DR TABLET PO SCH ×2 (09:20→16:22)
[2016-08-07] MEDS: RALTEGRAVIR 400 MG TABLET PO SCH ×2 (09:20→16:22)
[2016-08-07] MEDS: RisperiDONE 3 MG TABLET PO SCH ×2 (09:20→16:22)
[2016-08-07] MEDS: BENZTROPINE MESYLATE 1 MG TABLET PO SCH ×2 (09:20→16:22)
[2016-08-07 11:20] VITALS: BP 100/64
[2016-08-07 16:28] VITALS: BP 120/63
[2016-08-08 01:43] VITALS: BP 100/65
[2016-08-08 08:39] VITALS: BP 122/80
[2016-08-08] MEDS: BENZTROPINE MESYLATE 1 MG TABLET PO SCH ×2 (08:48→16:48)
[2016-08-08] MEDS: RisperiDONE 3 MG TABLET PO SCH ×2 (08:48→16:48)
[2016-08-08] MEDS: RALTEGRAVIR 400 MG TABLET PO SCH ×2 (08:48→16:48)
[2016-08-08] MEDS: DIVALPROEX SODIUM 500 MG DR TABLET PO SCH ×2 (08:48→16:48)
[2016-08-08 16:27] VITALS: BP 102/64
[2016-08-09 00:43] VITALS: BP 109/62
[2016-08-09] MEDS: LORazepam 2 MG TABLET PO PRN (01:15)
[2016-08-09 08:24] VITALS: BP 104/60
[2016-08-09] MEDS: RALTEGRAVIR 400 MG TABLET PO SCH ×2 (08:49→17:10)
[2016-08-09] MEDS: RisperiDONE 3 MG TABLET PO SCH ×2 (08:49→17:10)
[2016-08-09] MEDS: DIVALPROEX SODIUM 500 MG DR TABLET PO SCH ×2 (08:49→17:10)
[2016-08-09] MEDS: BENZTROPINE MESYLATE 1 MG TABLET PO SCH ×2 (08:49→17:10)
[2016-08-09 16:13] VITALS: BP 104/62
[2016-08-10 00:26] VITALS: BP 100/61
[2016-08-10] MEDS: BENZTROPINE MESYLATE 1 MG TABLET PO SCH ×2 (09:01→17:28)
[2016-08-10] MEDS: RALTEGRAVIR 400 MG TABLET PO SCH ×2 (09:01→17:28)
[2016-08-10] MEDS: DIVALPROEX SODIUM 500 MG DR TABLET PO SCH ×2 (09:01→17:28)
[2016-08-10] MEDS: RisperiDONE 3 MG TABLET PO SCH ×2 (09:01→17:28)
[2016-08-10 09:13] VITALS: BP 101/65
[2016-08-10 17:28] VITALS: BP 125/67
[2016-08-10] MEDS: LORazepam 2 MG TABLET PO PRN (21:52)
[2016-08-11 01:09] VITALS: BP 82/55
[2016-08-11 08:37] VITALS: BP 99/70
[2016-08-11] MEDS: RALTEGRAVIR 400 MG TABLET PO SCH ×2 (09:06→17:18)
[2016-08-11] MEDS: BENZTROPINE MESYLATE 1 MG TABLET PO SCH ×2 (09:06→17:18)
[2016-08-11] MEDS: DIVALPROEX SODIUM 500 MG DR TABLET PO SCH ×2 (09:06→17:18)
[2016-08-11] MEDS: RisperiDONE 3 MG TABLET PO SCH ×2 (09:07→17:18)
[2016-08-11 17:21] VITALS: BP 100/72
[2016-08-12] MEDS: LORazepam 2 MG TABLET PO PRN (00:38)
[2016-08-12 06:59] VITALS: BP 106/69
[2016-08-12 08:44] VITALS: BP 103/61
[2016-08-12] MEDS: RisperiDONE 3 MG TABLET PO SCH ×2 (09:50→17:16)
[2016-08-12] MEDS: BENZTROPINE MESYLATE 1 MG TABLET PO SCH ×2 (09:50→17:16)
[2016-08-12] MEDS: RALTEGRAVIR 400 MG TABLET PO SCH ×2 (09:51→17:16)
[2016-08-12] MEDS: DIVALPROEX SODIUM 500 MG DR TABLET PO SCH ×2 (10:02→17:16)
[2016-08-12 16:11] VITALS: BP 102/62
[2016-08-13 07:01] VITALS: BP 106/61
[2016-08-13 08:08] VITALS: BP 101/62
[2016-08-13] MEDS: RALTEGRAVIR 400 MG TABLET PO SCH ×2 (08:45→17:00)
[2016-08-13] MEDS: RisperiDONE 3 MG TABLET PO SCH ×2 (08:45→17:00)
[2016-08-13] MEDS: BENZTROPINE MESYLATE 1 MG TABLET PO SCH ×2 (08:45→17:00)
[2016-08-13] MEDS: DIVALPROEX SODIUM 500 MG DR TABLET PO SCH ×2 (08:45→17:00)
[2016-08-13 16:20] VITALS: BP 100/60
[2016-08-14 06:03] VITALS: BP 103/67
[2016-08-14 08:19] VITALS: BP 106/74
[2016-08-14] MEDS: RisperiDONE 3 MG TABLET PO SCH ×2 (08:32→17:07)
[2016-08-14] MEDS: BENZTROPINE MESYLATE 1 MG TABLET PO SCH ×2 (08:32→17:07)
[2016-08-14] MEDS: RALTEGRAVIR 400 MG TABLET PO SCH ×2 (08:32→17:07)
[2016-08-14] MEDS: DIVALPROEX SODIUM 500 MG DR TABLET PO SCH ×2 (08:32→17:07)
[2016-08-14] MEDS: LORazepam 2 MG TABLET PO PRN (09:47)
[2016-08-14 16:03] VITALS: BP 101/60
[2016-08-14 17:07] VITALS: BP 111/76
[2016-08-15 06:00] VITALS: BP 101/71
[2016-08-15 08:03] VITALS: BP 111/77
[2016-08-15] MEDS: DIVALPROEX SODIUM 500 MG DR TABLET PO SCH ×2 (08:28→16:44)
[2016-08-15] MEDS: BENZTROPINE MESYLATE 1 MG TABLET PO SCH ×2 (08:28→16:44)
[2016-08-15] MEDS: RALTEGRAVIR 400 MG TABLET PO SCH ×2 (08:28→16:44)
[2016-08-15] MEDS: RisperiDONE 3 MG TABLET PO SCH ×2 (08:28→16:44)
[2016-08-15 16:16] VITALS: BP 118/71
[2016-08-15] MEDS: LORazepam 2 MG TABLET PO PRN (19:17)
[2016-08-16 00:39] VITALS: BP 125/81
[2016-08-16 08:31] VITALS: BP 90/65
[2016-08-16] MEDS: RisperiDONE 3 MG TABLET PO SCH ×2 (09:42→17:31)
[2016-08-16] MEDS: BENZTROPINE MESYLATE 1 MG TABLET PO SCH ×2 (09:42→17:31)
[2016-08-16] MEDS: DIVALPROEX SODIUM 500 MG DR TABLET PO SCH ×2 (09:42→17:31)
[2016-08-16] MEDS: RALTEGRAVIR 400 MG TABLET PO SCH ×2 (09:42→17:31)
[2016-08-16 17:13] VITALS: BP 102/57
[2016-08-16 17:30] VITALS: BP 117/78
[2016-08-17 08:30] VITALS: BP 99/69
[2016-08-17] MEDS: RisperiDONE 3 MG TABLET PO SCH ×2 (08:49→16:33)
[2016-08-17] MEDS: RALTEGRAVIR 400 MG TABLET PO SCH ×2 (08:49→16:33)
[2016-08-17] MEDS: BENZTROPINE MESYLATE 1 MG TABLET PO SCH ×2 (08:49→16:33)
[2016-08-17] MEDS: DIVALPROEX SODIUM 500 MG DR TABLET PO SCH ×2 (08:49→16:33)
[2016-08-17 14:49] VITALS: BP 121/79
[2016-08-17] MEDS: LORazepam 2 MG TABLET PO PRN (14:51)
[2016-08-17 16:28] VITALS: BP 116/78
[2016-08-18 06:04] VITALS: BP 102/62
[2016-08-18] MEDS: DIVALPROEX SODIUM 500 MG DR TABLET PO SCH ×2 (08:18→16:41)
[2016-08-18] MEDS: RALTEGRAVIR 400 MG TABLET PO SCH ×2 (08:18→16:41)
[2016-08-18] MEDS: BENZTROPINE MESYLATE 1 MG TABLET PO SCH ×2 (08:18→16:41)
[2016-08-18] MEDS: RisperiDONE 3 MG TABLET PO SCH ×2 (08:18→16:41)
[2016-08-18 08:20] VITALS: BP 109/79
[2016-08-18 16:14] VITALS: BP 112/69
[2016-08-19] MEDS: RisperiDONE 3 MG TABLET PO SCH ×2 (08:08→16:36)
[2016-08-19] MEDS: DIVALPROEX SODIUM 500 MG DR TABLET PO SCH ×2 (08:08→16:36)
[2016-08-19] MEDS: RALTEGRAVIR 400 MG TABLET PO SCH ×2 (08:08→16:36)
[2016-08-19] MEDS: BENZTROPINE MESYLATE 1 MG TABLET PO SCH ×2 (08:08→16:36)
[2016-08-19 08:09] VITALS: BP 110/89
[2016-08-19 16:13] VITALS: BP 106/76
[2016-08-19] MEDS: LORazepam 2 MG TABLET PO PRN (18:46)
[2016-08-20 08:12] VITALS: BP 120/71
[2016-08-20] MEDS: DIVALPROEX SODIUM 500 MG DR TABLET PO SCH ×2 (09:40→16:23)
[2016-08-20] MEDS: RisperiDONE 3 MG TABLET PO SCH ×2 (09:40→16:23)
[2016-08-20] MEDS: BENZTROPINE MESYLATE 1 MG TABLET PO SCH ×2 (09:40→16:23)
[2016-08-20] MEDS: RALTEGRAVIR 400 MG TABLET PO SCH ×2 (10:16→16:23)
[2016-08-20 16:11] VITALS: BP_SYST 105; BP_DIAS 63; BP_DIAS 73
[2016-08-21 07:17] VITALS: BP 120/69
[2016-08-21 08:39] VITALS: BP 111/70
[2016-08-21] MEDS: DIVALPROEX SODIUM 500 MG DR TABLET PO SCH ×2 (09:00→16:13)
[2016-08-21] MEDS: RALTEGRAVIR 400 MG TABLET PO SCH ×2 (09:00→16:14)
[2016-08-21] MEDS: RisperiDONE 3 MG TABLET PO SCH ×2 (09:00→16:14)
[2016-08-21] MEDS: BENZTROPINE MESYLATE 1 MG TABLET PO SCH ×2 (09:01→16:14)
[2016-08-21] MEDS: LORazepam 2 MG TABLET PO PRN ×2 (15:48→21:07)
[2016-08-21 16:14] VITALS: BP 103/67
[2016-08-22 06:36] VITALS: BP 102/64
[2016-08-22 08:29] VITALS: BP 100/60
[2016-08-22] MEDS: RALTEGRAVIR 400 MG TABLET PO SCH ×2 (09:43→16:36)
[2016-08-22] MEDS: RisperiDONE 3 MG TABLET PO SCH ×2 (09:44→16:36)
[2016-08-22] MEDS: DIVALPROEX SODIUM 500 MG DR TABLET PO SCH ×2 (09:44→16:36)
[2016-08-22] MEDS: BENZTROPINE MESYLATE 1 MG TABLET PO SCH ×2 (09:44→16:36)
[2016-08-22 16:00] VITALS: BP 106/76
[2016-08-22] MEDS: LORazepam 2 MG TABLET PO PRN (18:45)
[2016-08-23 00:01] VITALS: BP 105/65
[2016-08-23] MEDS: RisperiDONE 3 MG TABLET PO SCH ×2 (08:41→16:37)
[2016-08-23] MEDS: BENZTROPINE MESYLATE 1 MG TABLET PO SCH ×2 (08:41→16:37)
[2016-08-23] MEDS: DIVALPROEX SODIUM 500 MG DR TABLET PO SCH ×2 (08:41→16:37)
[2016-08-23] MEDS: RALTEGRAVIR 400 MG TABLET PO SCH ×2 (08:41→16:37)
[2016-08-23 08:43] VITALS: BP 100/64
[2016-08-23 16:22] VITALS: BP 113/67
[2016-08-24 00:05] VITALS: BP 108/68
[2016-08-24 08:13] VITALS: BP 102/69
[2016-08-24] MEDS: RALTEGRAVIR 400 MG TABLET PO SCH ×2 (08:43→18:05)
[2016-08-24] MEDS: BENZTROPINE MESYLATE 1 MG TABLET PO SCH ×2 (08:44→18:05)
[2016-08-24] MEDS: RisperiDONE 3 MG TABLET PO SCH ×2 (08:44→18:05)
[2016-08-24] MEDS: DIVALPROEX SODIUM 500 MG DR TABLET PO SCH ×2 (08:44→18:05)
[2016-08-24 16:00] VITALS: BP 100/70
[2016-08-24] MEDS: LORazepam 2 MG TABLET PO PRN (21:57)
[2016-08-25 00:10] VITALS: BP 104/64
[2016-08-25] MEDS: RisperiDONE 3 MG TABLET PO SCH ×2 (08:16→16:50)
[2016-08-25] MEDS: RALTEGRAVIR 400 MG TABLET PO SCH ×2 (08:16→16:50)
[2016-08-25] MEDS: BENZTROPINE MESYLATE 1 MG TABLET PO SCH ×2 (08:16→16:50)
[2016-08-25] MEDS: DIVALPROEX SODIUM 500 MG DR TABLET PO SCH ×2 (08:16→16:50)
[2016-08-25 09:06] VITALS: BP 97/55
[2016-08-25 16:11] VITALS: BP 103/79
[2016-08-25] MEDS: LORazepam 2 MG TABLET PO PRN (20:35)
[2016-08-26] MEDS: RALTEGRAVIR 400 MG TABLET PO SCH ×2 (09:12→16:12)
[2016-08-26] MEDS: RisperiDONE 3 MG TABLET PO SCH ×2 (09:12→16:12)
[2016-08-26] MEDS: DIVALPROEX SODIUM 500 MG DR TABLET PO SCH ×2 (09:12→16:12)
[2016-08-26] MEDS: BENZTROPINE MESYLATE 1 MG TABLET PO SCH ×2 (09:12→16:12)
[2016-08-26 09:18] VITALS: BP 98/62
[2016-08-26 16:27] VITALS: BP 105/69
[2016-08-26] MEDS: LORazepam 2 MG TABLET PO PRN (19:54)
[2016-08-27] VITALS: BP 110/71
[2016-08-27 08:20] VITALS: BP 105/67
[2016-08-27] MEDS: BENZTROPINE MESYLATE 1 MG TABLET PO SCH ×2 (09:24→16:56)
[2016-08-27] MEDS: RALTEGRAVIR 400 MG TABLET PO SCH ×2 (09:24→16:56)
[2016-08-27] MEDS: DIVALPROEX SODIUM 500 MG DR TABLET PO SCH ×2 (09:24→16:56)
[2016-08-27] MEDS: RisperiDONE 3 MG TABLET PO SCH ×2 (09:24→16:56)
[2016-08-27 16:14] VITALS: BP 97/68
[2016-08-28 05:49] VITALS: BP 103/62
[2016-08-28 08:10] VITALS: BP 100/75
[2016-08-28] MEDS: BENZTROPINE MESYLATE 1 MG TABLET PO SCH ×2 (08:57→16:10)
[2016-08-28] MEDS: RisperiDONE 3 MG TABLET PO SCH ×2 (08:57→16:10)
[2016-08-28] MEDS: RALTEGRAVIR 400 MG TABLET PO SCH ×2 (08:57→16:10)
[2016-08-28] MEDS: DIVALPROEX SODIUM 500 MG DR TABLET PO SCH ×2 (08:57→16:10)
[2016-08-28 16:17] VITALS: BP 107/60
[2016-08-28] MEDS: LORazepam 2 MG TABLET PO PRN (19:27)
[2016-08-29 03:18] VITALS: BP 106/62
[2016-08-29 08:13] VITALS: BP 109/71
[2016-08-29] MEDS: RisperiDONE 3 MG TABLET PO SCH ×2 (08:57→16:44)
[2016-08-29] MEDS: RALTEGRAVIR 400 MG TABLET PO SCH ×2 (08:57→16:44)
[2016-08-29] MEDS: DIVALPROEX SODIUM 500 MG DR TABLET PO SCH ×2 (08:57→16:44)
[2016-08-29] MEDS: BENZTROPINE MESYLATE 1 MG TABLET PO SCH ×2 (08:57→16:44)
[2016-08-29 16:20] VITALS: BP 108/65
[2016-08-29] MEDS: LORazepam 2 MG TABLET PO PRN (19:26)
[2016-08-29 19:27] VITALS: BP 115/73
[2016-08-30 00:44] VITALS: BP 106/62
[2016-08-30 08:26] VITALS: BP 100/57
[2016-08-30] MEDS: RisperiDONE 3 MG TABLET PO SCH ×2 (09:29→16:34)
[2016-08-30] MEDS: DIVALPROEX SODIUM 500 MG DR TABLET PO SCH ×2 (09:29→16:34)
[2016-08-30] MEDS: BENZTROPINE MESYLATE 1 MG TABLET PO SCH ×2 (09:29→16:34)
[2016-08-30] MEDS: RALTEGRAVIR 400 MG TABLET PO SCH ×2 (09:29→16:34)
[2016-08-30 16:15] VITALS: BP 104/73
[2016-08-30] MEDS: LORazepam 2 MG TABLET PO PRN (20:00)
[2016-08-31 06:24] VITALS: BP 100/58
[2016-08-31 08:12] VITALS: BP 109/75
[2016-08-31] MEDS: DIVALPROEX SODIUM 500 MG DR TABLET PO SCH ×2 (09:33→16:43)
[2016-08-31] MEDS: RisperiDONE 3 MG TABLET PO SCH ×2 (09:33→16:43)
[2016-08-31] MEDS: BENZTROPINE MESYLATE 1 MG TABLET PO SCH ×2 (09:33→16:43)
[2016-08-31] MEDS: RALTEGRAVIR 400 MG TABLET PO SCH ×2 (09:33→16:43)
[2016-08-31 16:16] VITALS: BP 103/71
[2016-08-31 19:46] VITALS: BP 111/64
[2016-08-31] MEDS: LORazepam 2 MG TABLET PO PRN (19:47)
[2016-09-01] MEDS: BENZTROPINE MESYLATE 1 MG TABLET PO SCH ×2 (09:13→16:37)
[2016-09-01] MEDS: RisperiDONE 3 MG TABLET PO SCH ×2 (09:13→16:37)
[2016-09-01] MEDS: DIVALPROEX SODIUM 500 MG DR TABLET PO SCH ×2 (09:13→16:38)
[2016-09-01] MEDS: RALTEGRAVIR 400 MG TABLET PO SCH ×2 (09:13→16:37)
[2016-09-01 16:19] VITALS: BP 103/65
[2016-09-01] MEDS: LORazepam 2 MG TABLET PO PRN (19:11)
[2016-09-02 08:13] VITALS: BP 112/76
[2016-09-02] MEDS: RALTEGRAVIR 400 MG TABLET PO SCH ×2 (08:41→16:38)
[2016-09-02] MEDS: DIVALPROEX SODIUM 500 MG DR TABLET PO SCH ×2 (08:41→16:39)
[2016-09-02] MEDS: BENZTROPINE MESYLATE 1 MG TABLET PO SCH ×2 (08:41→16:38)
[2016-09-02] MEDS: RisperiDONE 3 MG TABLET PO SCH ×2 (08:41→16:38)
[2016-09-02 16:09] VITALS: BP 105/60
[2016-09-02] MEDS: LORazepam 2 MG TABLET PO PRN (20:03)
[2016-09-03 08:00] VITALS: BP 100/61
[2016-09-03] MEDS: DIVALPROEX SODIUM 500 MG DR TABLET PO SCH ×2 (09:34→16:21)
[2016-09-03] MEDS: RisperiDONE 3 MG TABLET PO SCH ×2 (09:34→16:21)
[2016-09-03] MEDS: RALTEGRAVIR 400 MG TABLET PO SCH ×2 (09:34→16:21)
[2016-09-03] MEDS: BENZTROPINE MESYLATE 1 MG TABLET PO SCH ×2 (09:34→16:21)
[2016-09-03 16:10] VITALS: BP 106/65
[2016-09-03] MEDS: LORazepam 2 MG TABLET PO PRN (20:41)
[2016-09-04 08:32] VITALS: BP 104/64
[2016-09-04] MEDS: BENZTROPINE MESYLATE 1 MG TABLET PO SCH ×2 (08:45→16:35)
[2016-09-04] MEDS: RALTEGRAVIR 400 MG TABLET PO SCH ×2 (08:45→16:34)
[2016-09-04] MEDS: DIVALPROEX SODIUM 500 MG DR TABLET PO SCH ×2 (08:45→16:34)
[2016-09-04] MEDS: RisperiDONE 3 MG TABLET PO SCH ×2 (08:45→16:34)
[2016-09-04] MEDS ORDERED: IBUPROFEN 400 MG TABLET PO PRN (11:15)
[2016-09-04 16:12] VITALS: BP 102/60
[2016-09-05 00:05] VITALS: BP 102/63
[2016-09-05 08:12] VITALS: BP 109/75
[2016-09-05] MEDS: BENZTROPINE MESYLATE 1 MG TABLET PO SCH ×2 (08:39→16:36)
[2016-09-05] MEDS: RALTEGRAVIR 400 MG TABLET PO SCH ×2 (08:39→16:36)
[2016-09-05] MEDS: RisperiDONE 3 MG TABLET PO SCH ×2 (08:39→16:36)
[2016-09-05] MEDS: DIVALPROEX SODIUM 500 MG DR TABLET PO SCH ×2 (08:39→16:36)
[2016-09-05 16:15] VITALS: BP 103/61
[2016-09-05] MEDS: LORazepam 2 MG TABLET PO PRN (21:33)
[2016-09-06 06:23] VITALS: BP 105/62
[2016-09-06 08:12] VITALS: BP 103/56
[2016-09-06] MEDS: DIVALPROEX SODIUM 500 MG DR TABLET PO SCH ×2 (08:51→16:41)
[2016-09-06] MEDS: BENZTROPINE MESYLATE 1 MG TABLET PO SCH ×2 (08:51→16:41)
[2016-09-06] MEDS: RisperiDONE 3 MG TABLET PO SCH ×2 (08:51→16:41)
[2016-09-06] MEDS: RALTEGRAVIR 400 MG TABLET PO SCH ×2 (08:51→16:41)
[2016-09-06 16:55] VITALS: BP 127/83
[2016-09-07 06:18] VITALS: BP 117/71
[2016-09-07] MEDS: DIVALPROEX SODIUM 500 MG DR TABLET PO SCH ×2 (09:22→16:41)
[2016-09-07] MEDS: BENZTROPINE MESYLATE 1 MG TABLET PO SCH ×2 (09:22→16:42)
[2016-09-07] MEDS: RALTEGRAVIR 400 MG TABLET PO SCH ×2 (09:22→16:41)
[2016-09-07] MEDS: RisperiDONE 3 MG TABLET PO SCH ×2 (09:22→16:42)
[2016-09-07 09:24] VITALS: BP 96/69
[2016-09-07 16:18] VITALS: BP 106/64
[2016-09-07] MEDS: LORazepam 2 MG TABLET PO PRN (20:51)
[2016-09-08] MEDS: DIVALPROEX SODIUM 500 MG DR TABLET PO SCH ×2 (09:15→16:43)
[2016-09-08] MEDS: RALTEGRAVIR 400 MG TABLET PO SCH ×2 (09:15→16:43)
[2016-09-08] MEDS: RisperiDONE 3 MG TABLET PO SCH ×2 (09:15→16:43)
[2016-09-08] MEDS: BENZTROPINE MESYLATE 1 MG TABLET PO SCH ×2 (09:15→16:43)
[2016-09-08 16:22] VITALS: BP 107/61
[2016-09-08] MEDS: LORazepam 2 MG TABLET PO PRN (22:10)
[2016-09-09] VITALS: BP 123/71
[2016-09-09] MEDS: RALTEGRAVIR 400 MG TABLET PO SCH ×2 (09:09→18:49)
[2016-09-09] MEDS: BENZTROPINE MESYLATE 1 MG TABLET PO SCH ×2 (09:09→16:52)
[2016-09-09] MEDS: RisperiDONE 3 MG TABLET PO SCH ×2 (09:09→16:52)
[2016-09-09] MEDS: DIVALPROEX SODIUM 500 MG DR TABLET PO SCH ×2 (09:09→16:52)
[2016-09-09 16:13] VITALS: BP 104/70
[2016-09-09] MEDS: LORazepam 2 MG TABLET PO PRN (19:20)
[2016-09-10 05:55] VITALS: BP 106/69
[2016-09-10 09:00] VITALS: BP 101/72
[2016-09-10] MEDS: RALTEGRAVIR 400 MG TABLET PO SCH ×2 (09:06→16:41)
[2016-09-10] MEDS: BENZTROPINE MESYLATE 1 MG TABLET PO SCH ×2 (09:06→16:41)
[2016-09-10] MEDS: RisperiDONE 3 MG TABLET PO SCH ×2 (09:06→16:41)
[2016-09-10] MEDS: DIVALPROEX SODIUM 500 MG DR TABLET PO SCH ×2 (09:06→16:41)
[2016-09-10 16:05] VITALS: BP 101/54
[2016-09-11 00:58] VITALS: BP 105/62
[2016-09-11 08:13] VITALS: BP 101/70
[2016-09-11] MEDS: RALTEGRAVIR 400 MG TABLET PO SCH ×2 (09:23→16:39)
[2016-09-11] MEDS: RisperiDONE 3 MG TABLET PO SCH ×2 (09:23→16:40)
[2016-09-11] MEDS: DIVALPROEX SODIUM 500 MG DR TABLET PO SCH ×2 (09:23→16:40)
[2016-09-11] MEDS: BENZTROPINE MESYLATE 1 MG TABLET PO SCH ×2 (09:23→16:39)
[2016-09-11 16:13] VITALS: BP 109/69
[2016-09-12 01:43] VITALS: BP 103/65
[2016-09-12 08:11] VITALS: BP 103/58
[2016-09-12] MEDS: BENZTROPINE MESYLATE 1 MG TABLET PO SCH ×2 (08:54→16:39)
[2016-09-12] MEDS: RisperiDONE 3 MG TABLET PO SCH ×2 (08:54→16:40)
[2016-09-12] MEDS: RALTEGRAVIR 400 MG TABLET PO SCH ×2 (08:54→16:40)
[2016-09-12] MEDS: DIVALPROEX SODIUM 500 MG DR TABLET PO SCH ×2 (08:54→16:39)
[2016-09-12 16:17] VITALS: BP 102/62
[2016-09-12] MEDS: LORazepam 2 MG TABLET PO PRN (19:25)
[2016-09-13 07:15] VITALS: BP 109/68
[2016-09-13 08:13] VITALS: BP 108/64
[2016-09-13] MEDS: BENZTROPINE MESYLATE 1 MG TABLET PO SCH ×2 (08:52→16:37)
[2016-09-13] MEDS: RisperiDONE 3 MG TABLET PO SCH ×2 (08:52→16:37)
[2016-09-13] MEDS: DIVALPROEX SODIUM 500 MG DR TABLET PO SCH ×2 (08:52→16:37)
[2016-09-13] MEDS: RALTEGRAVIR 400 MG TABLET PO SCH ×2 (08:52→16:37)
[2016-09-13 16:17] VITALS: BP 108/63
[2016-09-13] MEDS: LORazepam 2 MG TABLET PO PRN (19:50)
[2016-09-14 01:30] VITALS: BP 102/61
[2016-09-14 08:11] VITALS: BP 103/57
[2016-09-14] MEDS: BENZTROPINE MESYLATE 1 MG TABLET PO SCH ×2 (08:46→16:45)
[2016-09-14] MEDS: RALTEGRAVIR 400 MG TABLET PO SCH ×2 (08:46→16:45)
[2016-09-14] MEDS: DIVALPROEX SODIUM 500 MG DR TABLET PO SCH ×2 (08:46→16:45)
[2016-09-14] MEDS: RisperiDONE 3 MG TABLET PO SCH ×2 (08:46→16:45)
[2016-09-14 16:16] VITALS: BP 126/67
[2016-09-14] MEDS: LORazepam 2 MG TABLET PO PRN (19:55)
[2016-09-15 00:23] VITALS: BP 110/65
[2016-09-15 08:21] VITALS: BP 101/67
[2016-09-15] MEDS: RisperiDONE 3 MG TABLET PO SCH ×2 (09:00→16:35)
[2016-09-15] MEDS: BENZTROPINE MESYLATE 1 MG TABLET PO SCH ×2 (09:00→16:35)
[2016-09-15] MEDS: RALTEGRAVIR 400 MG TABLET PO SCH ×2 (09:00→16:35)
[2016-09-15] MEDS: DIVALPROEX SODIUM 500 MG DR TABLET PO SCH ×2 (09:00→16:35)
[2016-09-15 16:05] VITALS: BP 107/80
[2016-09-15] MEDS: LORazepam 2 MG TABLET PO PRN (19:12)
[2016-09-16 06:30] VITALS: BP 102/63
[2016-09-16 08:11] VITALS: BP 109/55
[2016-09-16] MEDS: BENZTROPINE MESYLATE 1 MG TABLET PO SCH ×2 (08:59→16:28)
[2016-09-16] MEDS: RisperiDONE 3 MG TABLET PO SCH ×2 (08:59→16:28)
[2016-09-16] MEDS: RALTEGRAVIR 400 MG TABLET PO SCH ×2 (08:59→16:28)
[2016-09-16] MEDS: DIVALPROEX SODIUM 500 MG DR TABLET PO SCH ×2 (08:59→16:28)
[2016-09-16 09:01] VITALS: BP 104/61
[2016-09-16 16:11] VITALS: BP 109/55
[2016-09-16] MEDS: LORazepam 2 MG TABLET PO PRN (21:39)
[2016-09-17 06:30] VITALS: BP 104/62
[2016-09-17 08:11] VITALS: BP 101/75
[2016-09-17] MEDS: DIVALPROEX SODIUM 500 MG DR TABLET PO SCH ×2 (08:50→16:21)
[2016-09-17] MEDS: BENZTROPINE MESYLATE 1 MG TABLET PO SCH ×2 (08:50→16:21)
[2016-09-17] MEDS: RisperiDONE 3 MG TABLET PO SCH ×2 (08:50→16:21)
[2016-09-17] MEDS: RALTEGRAVIR 400 MG TABLET PO SCH ×2 (08:51→16:21)
[2016-09-17 12:48] VITALS: BP 104/72
[2016-09-17 16:09] VITALS: BP 106/62
[2016-09-17] MEDS: LORazepam 2 MG TABLET PO PRN (20:42)
[2016-09-18 06:58] VITALS: BP 110/57
[2016-09-18] MEDS: RALTEGRAVIR 400 MG TABLET PO SCH ×2 (08:59→16:14)
[2016-09-18] MEDS: DIVALPROEX SODIUM 500 MG DR TABLET PO SCH ×2 (08:59→16:14)
[2016-09-18] MEDS: RisperiDONE 3 MG TABLET PO SCH ×2 (08:59→16:15)
[2016-09-18] MEDS: BENZTROPINE MESYLATE 1 MG TABLET PO SCH ×2 (08:59→16:14)
[2016-09-18 16:05] VITALS: BP 100/63
[2016-09-18] MEDS: LORazepam 2 MG TABLET PO PRN (20:08)
[2016-09-19 03:21] VITALS: BP 119/71
[2016-09-19 08:17] VITALS: BP 102/61
[2016-09-19] MEDS: BENZTROPINE MESYLATE 1 MG TABLET PO SCH ×2 (08:55→16:36)
[2016-09-19] MEDS: DIVALPROEX SODIUM 500 MG DR TABLET PO SCH ×2 (08:55→16:36)
[2016-09-19] MEDS: RisperiDONE 3 MG TABLET PO SCH ×2 (08:55→16:36)
[2016-09-19] MEDS: RALTEGRAVIR 400 MG TABLET PO SCH ×2 (08:56→16:36)
[2016-09-19 16:00] VITALS: BP 118/78
[2016-09-19] MEDS: LORazepam 2 MG TABLET PO PRN (19:48)
[2016-09-20 03:13] VITALS: BP 129/67
[2016-09-20] MEDS: RALTEGRAVIR 400 MG TABLET PO SCH ×2 (10:08→16:31)
[2016-09-20] MEDS: BENZTROPINE MESYLATE 1 MG TABLET PO SCH ×2 (10:08→16:31)
[2016-09-20] MEDS: DIVALPROEX SODIUM 500 MG DR TABLET PO SCH ×2 (10:08→16:31)
[2016-09-20] MEDS: RisperiDONE 3 MG TABLET PO SCH ×2 (10:08→16:31)
[2016-09-20 10:12] VITALS: BP 96/62
[2016-09-20 16:08] VITALS: BP 105/66
[2016-09-20] MEDS: LORazepam 2 MG TABLET PO PRN (20:18)
[2016-09-21 00:58] VITALS: BP 100/61
[2016-09-21 08:30] VITALS: BP 98/62
[2016-09-21] MEDS: BENZTROPINE MESYLATE 1 MG TABLET PO SCH ×2 (09:03→16:33)
[2016-09-21] MEDS: RALTEGRAVIR 400 MG TABLET PO SCH ×2 (09:03→16:33)
[2016-09-21] MEDS: DIVALPROEX SODIUM 500 MG DR TABLET PO SCH ×2 (09:03→16:33)
[2016-09-21] MEDS: RisperiDONE 3 MG TABLET PO SCH ×2 (09:03→16:33)
[2016-09-21 16:05] VITALS: BP 102/62
[2016-09-21] MEDS: LORazepam 2 MG TABLET PO PRN (20:23)
[2016-09-21 23:56] VITALS: BP 111/77
[2016-09-22 01:16] VITALS: BP 117/88
[2016-09-22 08:19] VITALS: BP 100/53
[2016-09-22] MEDS: DIVALPROEX SODIUM 500 MG DR TABLET PO SCH ×2 (08:37→16:34)
[2016-09-22] MEDS: BENZTROPINE MESYLATE 1 MG TABLET PO SCH ×2 (08:37→16:34)
[2016-09-22] MEDS: RisperiDONE 3 MG TABLET PO SCH ×2 (08:37→16:33)
[2016-09-22] MEDS: RALTEGRAVIR 400 MG TABLET PO SCH ×2 (08:37→16:34)
[2016-09-22 16:05] VITALS: BP 101/61
[2016-09-22] MEDS: LORazepam 2 MG TABLET PO PRN (20:12)
[2016-09-23 04:43] VITALS: BP 102/63
[2016-09-23 08:04] VITALS: BP 101/69
[2016-09-23] MEDS: BENZTROPINE MESYLATE 1 MG TABLET PO SCH ×2 (08:39→16:08)
[2016-09-23] MEDS: DIVALPROEX SODIUM 500 MG DR TABLET PO SCH ×2 (08:39→16:08)
[2016-09-23] MEDS: RALTEGRAVIR 400 MG TABLET PO SCH ×2 (08:39→16:08)
[2016-09-23] MEDS: RisperiDONE 3 MG TABLET PO SCH ×2 (08:39→16:08)
[2016-09-23 16:05] VITALS: BP 104/61
[2016-09-24 01:30] VITALS: BP 108/65
[2016-09-24] MEDS: LORazepam 2 MG TABLET PO PRN ×2 (01:34→20:06)
[2016-09-24 01:35] VITALS: BP 108/65
[2016-09-24] MEDS: BENZTROPINE MESYLATE 1 MG TABLET PO SCH ×2 (08:24→16:35)
[2016-09-24] MEDS: DIVALPROEX SODIUM 500 MG DR TABLET PO SCH ×2 (08:24→16:35)
[2016-09-24] MEDS: RALTEGRAVIR 400 MG TABLET PO SCH ×2 (08:24→16:35)
[2016-09-24] MEDS: RisperiDONE 3 MG TABLET PO SCH ×2 (08:24→16:35)
[2016-09-24 16:10] VITALS: BP 103/75
[2016-09-25 01:59] VITALS: BP 101/63
[2016-09-25] MEDS: RisperiDONE 3 MG TABLET PO SCH ×2 (08:52→16:34)
[2016-09-25] MEDS: BENZTROPINE MESYLATE 1 MG TABLET PO SCH ×2 (08:52→16:34)
[2016-09-25] MEDS: RALTEGRAVIR 400 MG TABLET PO SCH ×2 (08:52→16:34)
[2016-09-25] MEDS: DIVALPROEX SODIUM 500 MG DR TABLET PO SCH ×2 (08:52→16:34)
[2016-09-25 09:55] VITALS: BP 106/55
[2016-09-25 16:18] VITALS: BP 100/62
[2016-09-25] MEDS: LORazepam 2 MG TABLET PO PRN (19:12)
[2016-09-26 00:24] VITALS: BP 108/71
[2016-09-26 08:05] VITALS: BP 105/55
[2016-09-26] MEDS: BENZTROPINE MESYLATE 1 MG TABLET PO SCH ×2 (08:53→16:40)
[2016-09-26] MEDS: RisperiDONE 3 MG TABLET PO SCH ×2 (08:53→16:40)
[2016-09-26] MEDS: RALTEGRAVIR 400 MG TABLET PO SCH ×2 (08:53→16:40)
[2016-09-26] MEDS: DIVALPROEX SODIUM 500 MG DR TABLET PO SCH ×2 (08:53→16:40)
[2016-09-26 18:00] VITALS: BP 109/67
[2016-09-26] MEDS: LORazepam 2 MG TABLET PO PRN (20:37)
[2016-09-26] MEDS: ZOLPIDEM TARTRATE 10 MG TABLET PO PRN (22:45)
[2016-09-27 06:33] VITALS: BP 102/60
[2016-09-27 08:33] VITALS: BP 106/65
[2016-09-27] MEDS: RisperiDONE 3 MG TABLET PO SCH ×2 (09:14→16:41)
[2016-09-27] MEDS: BENZTROPINE MESYLATE 1 MG TABLET PO SCH ×2 (09:14→16:41)
[2016-09-27] MEDS: DIVALPROEX SODIUM 500 MG DR TABLET PO SCH ×2 (09:14→16:41)
[2016-09-27] MEDS: RALTEGRAVIR 400 MG TABLET PO SCH ×2 (09:14→16:41)
[2016-09-27 16:05] VITALS: BP 105/75
[2016-09-27] MEDS: ZOLPIDEM TARTRATE 10 MG TABLET PO PRN (21:02)
[2016-09-28 00:18] VITALS: BP 105/63
[2016-09-28 08:26] VITALS: BP 100/62
[2016-09-28] MEDS: DIVALPROEX SODIUM 500 MG DR TABLET PO SCH (08:40)
[2016-09-28] MEDS: RALTEGRAVIR 400 MG TABLET PO SCH (08:40)
[2016-09-28] MEDS: RisperiDONE 3 MG TABLET PO SCH (08:40)
[2016-09-28] MEDS: BENZTROPINE MESYLATE 1 MG TABLET PO SCH (08:40)
== END 2016-09-28 15:24 | disposition home or self-care (01) | DRG 885 ==
LOC: B2X 13:19
PROVIDERS: ADMIT Psychiatry & Neurology Psychiatry; ATTEND Psychiatry & Neurology Psychiatry
DX: F20.0 Paranoid schizophrenia (principal); E43 Unspecified severe protein-calorie malnutrition; E87.1 Hypo-osmolality and hyponatremia; B18.2 Chronic viral hepatitis C; N18.3 Chronic kidney disease, stage 3 (moderate); K21.9 Gastro-esophageal reflux disease without esophagitis; I12.9 Hypertensive chronic kidney disease with stage 1 through stage 4 chronic kidney disease, or unspecified chronic kidney disease; F15.90 Other stimulant use, unspecified, uncomplicated; F10.10 Alcohol abuse, uncomplicated; D64.9 Anemia, unspecified; F19.10 Other psychoactive substance abuse, uncomplicated; F99 Mental disorder, not otherwise specified; Z20.6 Contact with and (suspected) exposure to human immunodeficiency virus [HIV]; Z68.22 Body mass index [BMI] 22.0-22.9, adult; Z71.6 Tobacco abuse counseling; Z71.41 Alcohol abuse counseling and surveillance of alcoholic; Z71.51 Drug abuse counseling and surveillance of drug abuser; Z79.899 Other long term (current) drug therapy; Z28.21 Immunization not carried out because of patient refusal
CPT/HCPCS: 87081; 90471; 93005

== ENCOUNTER 2017-08-04 16:58 | Inpatient (IN) | payer MEDICARE, MEDICAID ==
[~2017-08-04] VITALS: Ht 167.6 cm; Wt 46.7 kg
[~2017-08-04 16:58] MED LIST changes: -PALI234D IM; -PANT40TA25 PO
[2017-08-04 19:26] VITALS: BP 127/78
[2017-08-04] MEDS ORDERED: ZOLPIDEM TARTRATE 10 MG TABLET PO PRN (19:45)
[2017-08-04] MEDS ORDERED: LORazepam 2 MG TABLET PO PRN (19:45)
[2017-08-04 20:10] VITALS: BP 117/89
[2017-08-04] MEDS ORDERED: INFLUENZA VIRUS VACCINE QVS 2017-18 (3YR+)/PF 60 MCG/0.5 ML SYRINGE IM ONE (20:30)
[2017-08-05 01:30] VITALS: BP 112/70
[2017-08-05 08:04] LABS: BASOPHILS % (AUTO) 0.3 % (0.0-2.0); EOSINOPHILS % (AUTO) 2.8 % (1.0-6.0); HEMATOCRIT 36.4 % (36-46); HEMOGLOBIN 12.4 g/dL (12.0-16.0); LYMPHOCYTES # (AUTO) 0.9 K/uL (1.0-4.8); LYMPHOCYTES % (AUTO) 14.2 % (22.0-44.0); MEAN CORPUSCULAR HEMOGLOBIN 31.8 pg (26.0-34.0); MEAN CORPUSCULAR VOLUME 94 fL (80-100); MONOCYTES # (AUTO) 0.8 K/uL (0.1-1.0); MONOCYTES % (AUTO) 12.1 % (2.0-9.0); NEUTROPHILS # (AUTO) 4.6 K/uL (1.8-7.7); NEUTROPHILS % (AUTO) 70.6 % (40.0-70.0); PLATELET COUNT (AUTO) 180 K/uL (150-450); RED BLOOD CELL COUNT(AUTO) 3.88 MIL/uL (4.00-5.20); RED CELL DISTRIBUTION WIDTH 13.1 % (11.5-14.5)
[2017-08-05 08:08] VITALS: BP 118/79
[2017-08-05] MEDS: RALTEGRAVIR 400 MG TABLET PO SCH ×2 (08:37→16:06)
[2017-08-05 08:50] LABS: ALBUMIN 3.1 g/dL (3.4-5.0); BILIRUBIN,TOTAL 0.3 mg/dL (0.1-1.0); CALCIUM, TOTAL 8.7 mg/dL (8.8-10.5); CREATININE 1.55 mg/dL (0.60-1.30); FREE T4 (FREE THYROXINE) 1.22 ng/dL (0.76-1.46); POTASSIUM 4.3 mmol/L (3.5-5.1); THYROID STIMULATING HORMONE 0.46 uIU/mL (0.36-3.74); TOTAL PROTEIN, SERUM 6.3 g/dL (6.4-8.2)
[2017-08-05 08:59] LABS: CHOL/HDL RATIO 2.3 (3.9-5.7)
[2017-08-05] MEDS: HALOPERIDOL 5 MG TABLET PO SCH (16:06)
[2017-08-05] MEDS: BENZTROPINE MESYLATE 0.5 MG TABLET PO SCH (16:06)
[2017-08-05 16:23] VITALS: BP 126/74
[2017-08-06 06:27] VITALS: BP 109/70
[2017-08-06 08:34] VITALS: BP 110/72
[2017-08-06] MEDS: HALOPERIDOL 5 MG TABLET PO SCH ×2 (08:41→16:20)
[2017-08-06] MEDS: BENZTROPINE MESYLATE 0.5 MG TABLET PO SCH ×2 (08:41→16:20)
[2017-08-06] MEDS: RALTEGRAVIR 400 MG TABLET PO SCH ×2 (08:42→16:20)
[2017-08-07 01:04] VITALS: BP 100/62
[2017-08-07 08:13] VITALS: BP 112/63
[2017-08-07] MEDS: HALOPERIDOL 5 MG TABLET PO SCH ×2 (09:27→16:08)
[2017-08-07] MEDS: BENZTROPINE MESYLATE 0.5 MG TABLET PO SCH (09:27)
[2017-08-07] MEDS: RALTEGRAVIR 400 MG TABLET PO SCH ×2 (09:27→16:07)
[2017-08-07] MEDS: BENZTROPINE MESYLATE 1 MG TABLET PO SCH (16:07)
[2017-08-07 16:40] VITALS: BP 108/68
[2017-08-08 08:04] VITALS: BP 105/65
[2017-08-08 08:15] LABS: CALCIUM, TOTAL 9.9 mg/dL (8.8-10.5); CREATININE 1.33 mg/dL (0.60-1.30); POTASSIUM 4.7 mmol/L (3.5-5.1)
[2017-08-08] MEDS: BENZTROPINE MESYLATE 1 MG TABLET PO SCH (09:01)
[2017-08-08] MEDS: RALTEGRAVIR 400 MG TABLET PO SCH ×2 (09:01→16:45)
[2017-08-08] MEDS: HALOPERIDOL 5 MG TABLET PO SCH ×2 (09:01→16:46)
[2017-08-08 16:21] VITALS: BP 106/60
[2017-08-08] MEDS: BENZTROPINE MESYLATE 2 MG TABLET PO SCH (16:45)
[2017-08-09 01:44] VITALS: BP 114/76
[2017-08-09] MEDS: RALTEGRAVIR 400 MG TABLET PO SCH ×2 (08:33→16:56)
[2017-08-09] MEDS: BENZTROPINE MESYLATE 2 MG TABLET PO SCH (08:33)
[2017-08-09] MEDS: HALOPERIDOL 5 MG TABLET PO SCH ×2 (08:34→16:55)
[2017-08-09 08:37] VITALS: BP 118/68
[2017-08-09] MEDS: BENZTROPINE MESYLATE 1 MG TABLET PO SCH (16:55)
[2017-08-09 17:42] VITALS: BP 105/65
[2017-08-10 05:34] VITALS: BP 101/67
[2017-08-10] MEDS ORDERED: HALOPERIDOL DECANOATE 50 MG/ML VIAL IM SCH (09:00)
[2017-08-10] MEDS: HALOPERIDOL 5 MG TABLET PO SCH ×2 (09:58→16:25)
[2017-08-10] MEDS: RALTEGRAVIR 400 MG TABLET PO SCH ×2 (09:59→16:25)
[2017-08-10] MEDS: BENZTROPINE MESYLATE 1 MG TABLET PO SCH ×2 (09:59→16:25)
[2017-08-10 16:08] VITALS: BP 115/68
[2017-08-11 05:00] VITALS: BP 108/62
[2017-08-11] MEDS: RALTEGRAVIR 400 MG TABLET PO SCH ×2 (08:31→16:48)
[2017-08-11] MEDS: HALOPERIDOL 5 MG TABLET PO SCH (08:31)
[2017-08-11] MEDS: BENZTROPINE MESYLATE 1 MG TABLET PO SCH ×2 (08:32→16:48)
[2017-08-11] MEDS: SULFAMETHOX/TRIMETH DS 800-160 MG/TABLET PO SCH (08:32)
[2017-08-11 10:13] VITALS: BP 98/60
[2017-08-11] MEDS: AZITHROMYCIN 600 MG TABLET PO SCH (12:53)
[2017-08-11 16:10] VITALS: BP 112/65
[2017-08-11] MEDS: HALOPERIDOL 10 MG TABLET PO SCH (16:49)
[2017-08-12 06:00] VITALS: BP 106/64
[2017-08-12] MEDS: SULFAMETHOX/TRIMETH DS 800-160 MG/TABLET PO SCH (09:34)
[2017-08-12] MEDS: HALOPERIDOL 10 MG TABLET PO SCH ×2 (09:34→16:00)
[2017-08-12] MEDS: BENZTROPINE MESYLATE 1 MG TABLET PO SCH ×2 (09:34→16:00)
[2017-08-12] MEDS: RALTEGRAVIR 400 MG TABLET PO SCH ×2 (09:34→16:00)
[2017-08-12 16:00] VITALS: BP 104/62
[2017-08-13] MEDS: RALTEGRAVIR 400 MG TABLET PO SCH ×2 (08:31→16:15)
[2017-08-13] MEDS: SULFAMETHOX/TRIMETH DS 800-160 MG/TABLET PO SCH (08:31)
[2017-08-13] MEDS: BENZTROPINE MESYLATE 1 MG TABLET PO SCH ×2 (08:31→16:16)
[2017-08-13] MEDS: HALOPERIDOL 10 MG TABLET PO SCH ×2 (08:31→16:15)
[2017-08-13 16:19] VITALS: BP 100/60
[2017-08-14 05:48] VITALS: BP 101/61
[2017-08-14 08:29] VITALS: BP 96/57
[2017-08-14] MEDS: SULFAMETHOX/TRIMETH DS 800-160 MG/TABLET PO SCH (08:42)
[2017-08-14] MEDS: HALOPERIDOL 10 MG TABLET PO SCH ×2 (08:42→16:09)
[2017-08-14] MEDS: RALTEGRAVIR 400 MG TABLET PO SCH ×2 (08:42→16:09)
[2017-08-14] MEDS: BENZTROPINE MESYLATE 1 MG TABLET PO SCH ×2 (08:42→16:09)
[2017-08-14 16:30] VITALS: BP 112/67
[2017-08-15 08:25] VITALS: BP 98/58
[2017-08-15] MEDS: BENZTROPINE MESYLATE 1 MG TABLET PO SCH ×2 (08:26→16:48)
[2017-08-15] MEDS: RALTEGRAVIR 400 MG TABLET PO SCH ×2 (08:26→16:48)
[2017-08-15] MEDS: HALOPERIDOL 10 MG TABLET PO SCH ×2 (08:26→16:48)
[2017-08-15] MEDS: SULFAMETHOX/TRIMETH DS 800-160 MG/TABLET PO SCH (08:26)
[2017-08-15 16:14] VITALS: BP 110/64
[2017-08-16] MEDS: RALTEGRAVIR 400 MG TABLET PO SCH ×2 (08:44→16:51)
[2017-08-16] MEDS: SULFAMETHOX/TRIMETH DS 800-160 MG/TABLET PO SCH (08:44)
[2017-08-16] MEDS: SERTRALINE HCL 50 MG TABLET PO SCH (08:44)
[2017-08-16] MEDS: BENZTROPINE MESYLATE 1 MG TABLET PO SCH ×2 (08:44→16:51)
[2017-08-16] MEDS: HALOPERIDOL 10 MG TABLET PO SCH ×2 (08:45→16:51)
[2017-08-17 08:20] VITALS: BP 96/92
[2017-08-17] MEDS: SULFAMETHOX/TRIMETH DS 800-160 MG/TABLET PO SCH (09:12)
[2017-08-17] MEDS: HALOPERIDOL 10 MG TABLET PO SCH ×2 (09:12→16:10)
[2017-08-17] MEDS: BENZTROPINE MESYLATE 1 MG TABLET PO SCH ×2 (09:12→16:09)
[2017-08-17] MEDS: RALTEGRAVIR 400 MG TABLET PO SCH ×2 (09:13→16:10)
[2017-08-17] MEDS: SERTRALINE HCL 50 MG TABLET PO SCH (09:13)
[2017-08-17 16:09] VITALS: BP 100/61
[2017-08-17] MEDS ORDERED: LORazepam 1 MG TABLET PO PRN (19:45)
[2017-08-17] MEDS ORDERED: ESCITALOPRAM OXALATE 10 MG TABLET PO SCH (21:00)
[2017-08-18 07:02] VITALS: BP 106/56
[2017-08-18] MEDS: SERTRALINE HCL 50 MG TABLET PO SCH (08:41)
[2017-08-18] MEDS: BENZTROPINE MESYLATE 1 MG TABLET PO SCH ×2 (08:41→16:05)
[2017-08-18] MEDS: SULFAMETHOX/TRIMETH DS 800-160 MG/TABLET PO SCH (08:41)
[2017-08-18] MEDS: RALTEGRAVIR 400 MG TABLET PO SCH ×2 (08:41→16:05)
[2017-08-18] MEDS: AZITHROMYCIN 600 MG TABLET PO SCH (08:42)
[2017-08-18] MEDS: HALOPERIDOL 10 MG TABLET PO SCH ×2 (08:42→16:05)
[2017-08-18 08:51] VITALS: BP 99/63
[2017-08-18 16:10] VITALS: BP 111/65
[2017-08-19 01:35] VITALS: BP 117/68
[2017-08-19] MEDS: LORazepam 2 MG TABLET PO PRN ×2 (01:40→13:17)
[2017-08-19 08:12] VITALS: BP 106/72
[2017-08-19] MEDS: RALTEGRAVIR 400 MG TABLET PO SCH ×2 (08:20→16:23)
[2017-08-19] MEDS: BENZTROPINE MESYLATE 1 MG TABLET PO SCH ×2 (08:20→16:23)
[2017-08-19] MEDS: SERTRALINE HCL 50 MG TABLET PO SCH (08:20)
[2017-08-19] MEDS: HALOPERIDOL 10 MG TABLET PO SCH ×2 (08:21→16:23)
[2017-08-19] MEDS: SULFAMETHOX/TRIMETH DS 800-160 MG/TABLET PO SCH (08:21)
[2017-08-19 16:36] VITALS: BP 112/60
[2017-08-20 04:37] VITALS: BP 108/65
[2017-08-20] MEDS: LORazepam 2 MG TABLET PO PRN (04:40)
[2017-08-20] MEDS: RALTEGRAVIR 400 MG TABLET PO SCH (08:14)
[2017-08-20] MEDS: SERTRALINE HCL 50 MG TABLET PO SCH (08:14)
[2017-08-20] MEDS: SULFAMETHOX/TRIMETH DS 800-160 MG/TABLET PO SCH (08:15)
[2017-08-20] MEDS: HALOPERIDOL 10 MG TABLET PO SCH (08:15)
[2017-08-20] MEDS: BENZTROPINE MESYLATE 1 MG TABLET PO SCH (08:15)
[2017-08-20 08:21] VITALS: BP 100/69
[2017-08-20] MEDS ORDERED: BENZ2TAB10 PO (08:48)
[2017-08-20] MEDS ORDERED: SULF1TAB42 PO (08:48)
[2017-08-20] MEDS ORDERED: SERT50TA12 PO (08:48)
[2017-08-20] MEDS ORDERED: HALO10 PO (08:48)
[2017-08-20] MEDS ORDERED: [UNRECOGNIZED DRUG - CODE] PO (08:49)
[2017-08-20] MEDS ORDERED: RALT400T PO (08:49)
== END 2017-08-20 13:00 | disposition home or self-care (01) | DRG 885 ==
LOC: B2S 19:17
PROVIDERS: ADMIT Psychiatry & Neurology Psychiatry; ATTEND Psychiatry & Neurology Psychiatry
PROC: 3E0234Z Introduction of Serum, Toxoid and Vaccine into Muscle, Percutaneous Approach (ICD-10-PCS; principal; 2017-08-04)
DX: F25.0 Schizoaffective disorder, bipolar type (principal); F11.20 Opioid dependence, uncomplicated; N18.3 Chronic kidney disease, stage 3 (moderate); F10.10 Alcohol abuse, uncomplicated; F41.9 Anxiety disorder, unspecified; B18.2 Chronic viral hepatitis C; I12.9 Hypertensive chronic kidney disease with stage 1 through stage 4 chronic kidney disease, or unspecified chronic kidney disease; F60.9 Personality disorder, unspecified; M19.90 Unspecified osteoarthritis, unspecified site; K21.9 Gastro-esophageal reflux disease without esophagitis; Z59.0 Homelessness; Z65.3 Problems related to other legal circumstances; Z91.14 Patient's other noncompliance with medication regimen; Z79.899 Other long term (current) drug therapy; Z23 Encounter for immunization
CPT/HCPCS: 84439; 84443; 86361; 87081; J1631